=== PATIENT | male | born 1930 | race Caucasian/White ===

== ENCOUNTER 2017-12-15 07:37 | Emergency (ER) | payer MEDICARE, OTHER ==
[~2017-12-15] VITALS: Ht 177.8 cm; Wt 72.5 kg
[~2017-12-15 07:37] MED LIST: ASPI81 PO; LAMI200T PO; SERO400T3 OR; SIMV20TA PO; TRAZ50TA4 PO
[2017-12-15 07:51] VITALS: BP 141/79; PULSE 80; RESP 16; TEMP 98.6; O2SAT 96
[2017-12-15 08:17] LABS: AUTOMATED NEUTROPHIL # 2.1 TH/MM3 (1.8-7.7); BASOPHIL % 0.5 % (0.0-2.0); EOSINOPHIL # 0.1 TH/MM3 (0-0.4); EOSINOPHIL % 3.2 % (0.0-4.0); HEMATOCRIT 37.7 % (39.0-51.0); HEMOGLOBIN 12.4 GM/DL (13.0-17.0); LYMPH % 24.9 % (9.0-44.0); MEAN CELL VOLUME 90.4 FL (80.0-100.0); MEAN CORPUSCULAR HEMOGLOBIN 29.8 PG (27.0-34.0); MEAN CORPUSCULAR HGB CONC 32.9 % (32.0-36.0); MONO % 19.1 % (0.0-8.0); MONOCYTE # 0.8 TH/MM3 (0-0.9); NEUT % 52.3 % (16.0-70.0); PLATELET COUNT 268 TH/MM3 (150-450); RED BLOOD COUNT 4.16 MIL/MM3 (4.50-5.90); RED CELL DISTRIBUTION WIDTH 12.6 % (11.6-17.2)
[2017-12-15 08:28] LABS: CHLORIDE 106 MEQ/L (98-107); SODIUM (NA) 141 MEQ/L (136-145)
[2017-12-15 08:31] LABS: ALBUMIN 3.4 GM/DL (3.4-5.0); BICARBONATE 31.5 MEQ/L (21.0-32.0); CALCIUM 8.6 MG/DL (8.5-10.1)
[2017-12-15 08:32] LABS: BLOOD UREA NITROGEN 12 MG/DL (7-18); GLUCOSE,RANDOM 89 MG/DL (74-106)
[2017-12-15 08:35] LABS: ALT (GPT) 37 U/L (12-78); AST (GOT) 27 U/L (15-37); CREATININE 0.76 MG/DL (0.60-1.30); GLOMERULAR FILTRATION RATE 97 ML/MIN (>89)
[2017-12-15 08:36] LABS: TOTAL BILIRUBIN ADULT 0.4 MG/DL (0.2-1.0); TOTAL PROTEIN 7.1 GM/DL (6.4-8.2)
[2017-12-15 08:37] LABS: ALKALINE PHOSPHATASE 94 U/L (45-117)
--- NOTE | 2017-12-15 08:40 | RADRPT ---
EXAM DATE/TIME: 12/15/2017 08:11 [facility] COMPARISON: No previous studies available for comparison. INDICATIONS : Episode of aggressive behavior and altered mental status. RADIATION DOSE: 57.55 CTDIvol (mGy) MEDICAL HISTORY : Unknown SURGICAL HISTORY : Unknown ENCOUNTER: Initial ACUITY: 1 day PAIN SCALE: 0/10 LOCATION: cranial TECHNIQUE: Multiple contiguous axial images were obtained of the head. Using automated exposure control and adj ustment of the mA and/or kV according to patient size, radiation dose was kept as low as reasonably a chievable to obtain optimal diagnostic quality images. DICOM format image data is available electro nically for review and comparison. FINDINGS: CEREBRUM: The ventricles are normal for age. Mild periventricular and subcortical white matter small vessel is chemic changes are noted bilaterally. No evidence of midline shift, mass lesion, hemorrhage or acute infarction. No extra-axial fluid collections are seen. POSTERIOR FOSSA: The cerebellum and brainstem are intact. The 4th ventricle is midline. The cerebellopontine angle i s unremarkable. EXTRACRANIAL: The visualized portion of the orbits is intact. Mild mucosal thickening is noted within the left maxi llary sinus. SKULL: The calvaria is intact. No evidence of skull fracture. CONCLUSION: 1. Mild periventricular and subcortical white matter small vessel ischemic changes bilaterally. 2. No acute infarct, acute hemorrhage, mass effect or extra axial fluid collections. 3. Mild mucosal thickening involving left maxillary sinus. Royer Abreu MD on December 15, 2017 at 8:37 Board Certified Radiologist. This report was verified electronically.
[2017-12-15] MEDS ORDERED: CARV6.252 PO (08:52)
[2017-12-15] MEDS ORDERED: FURO40TA PO (08:52)
[2017-12-15] MEDS ORDERED: POTA-163 PO (08:52)
[2017-12-15] MEDS ORDERED: LOSA50TA PO (08:52)
[2017-12-15] MEDS ORDERED: MECL12.574 PO (08:52)
[2017-12-15] MEDS ORDERED: RISP0.5T2 PO (08:52)
[2017-12-15] MEDS ORDERED: CITA20TA4 PO (08:52)
[2017-12-15] MEDS ORDERED: DONE10TA7 PO (08:52)
[2017-12-15] MEDS ORDERED: LORA-567 PO (08:52)
[2017-12-15] MEDS ORDERED: SIMV40TA PO (08:52)
[2017-12-15] MEDS ORDERED: BUSP15TA PO (08:52)
[2017-12-15] MEDS ORDERED: ASPI-516 CHEW ×2 (08:52→10:58)
[2017-12-15] MEDS ORDERED: CALC1TAB87 PO (08:52)
[2017-12-15] MEDS ORDERED: CLON0.1T PO (08:52)
[2017-12-15] MEDS ORDERED: OMEP40CA2 PO (08:52)
[2017-12-15] MEDS ORDERED: LOPE2CAP PO (08:52)
[2017-12-15] MEDS ORDERED: MELA5 PO (08:52)
--- NOTE | 2017-12-15 10:27 | PD ---
HPI Chief Complaint: Medical Clearance Time Seen by Provider: 07:46 Travel History International Travel<30 days: No Contact w/Intl Traveler<30days: No Traveled to known affect area: No History of Present Illness HPI This 87-year-old male is brought from assisted living facility. He apparently lives there with his who has Lewy body dementia. Patient himself has dementia. He has a history of bipolar disorder that predates his dementia. He is currently on citalopram. Risperidone and buspirone. He went to his personal doctor last week and Depakote was added. There has been no improvement with the Depakote. The patient apparently does not sleep at night. He has gotten his up in the middle of the night and [facility]. Patient himself is not able to give much history. He is quite confused. He knows that he lives with his but he does not know where they will live PFSH Past Medical History Hx Anticoagulant Therapy: No (UNKNOWN) Arthritis: Yes Bipolar Disorder: Yes Anxiety: Yes Depression: Yes Cardiovascular Problems: No (UNKNOWN) Chemotherapy: No (UNKNOWN) Cerebrovascular Accident: No (UNKNOWN) Diabetes: No (UNKNOWN) Diminished Hearing: Yes (extremely [place]; wears hearing aids) Hiatal Hernia: Yes (197o's) Hypertension: Yes Musculoskeletal: Yes Psychiatric: Yes (pts is bi-polar) Respiratory: No (UNKNOWN) Pancreatitis: Yes Seizures: Yes ( CHILD BUT NONE SINCE 8 YEARS OLD) Triglycerides - High: Yes Ulcer: Yes Tetanus Vaccination: < 5 Years PNEUMOCCOCAL Vaccine (Year): 2010 Past Surgical History Abdominal Surgery: Yes (paula inquinal hernia repair) AICD: No Appendectomy: No Body Medical Devices: N/A Cardiac Surgery: No Cholecystectomy: No Ear Surgery: No Endocrine Surgery: No Eye Surgery: No Genitourinary Surgery: Yes (Hernia Repairs ) Gynecologic Surgery: No Hysterectomy: No (UNKNOWN) Joint Replacement: No Neurologic Surgery: No Oral Surgery: No Thoracic Surgery: Yes (right lung biopsy) Other Surgery: Yes (cyst in lung, middle chamber removed) Social History Alcohol Use: Yes (social use, nothing recent) Tobacco Use: No Substance Use: No Allergies-Medications (Allergen,Severity, Reaction): Coded Allergies: penicillin G (Unverified Allergy, Severe, Hives, 12/15/17) acetaminophen (Verified Allergy, Unknown, 12/15/17) alprazolam (Verified Allergy, Unknown, 12/15/17) oxycodone (Verified Allergy, Unknown, 12/15/17) Reported Meds & Prescriptions Reported Meds & Active Scripts Active Reported Buspirone (Buspirone HCl) 15 Mg Tab 15 Mg PO TID Risperidone 0.5 Mg Tab 0.5 Mg PO BID Losartan (Losartan Potassium) 50 Mg Tab 50 Mg PO BID Carvedilol 6.25 Mg Tab 6.25 Mg PO BID Potassium Chloride ER (Potassium Chloride) 20 Meq Tab 20 Meq PO DAILY Omeprazole 40 Mg Cap 40 Mg PO DAILY Loratadine Odt (Loratadine) 10 Mg Tab 10 Mg PO DAILY Furosemide 40 Mg Tab 40 Mg PO DAILY Citalopram (Citalopram Hydrobromide) 20 Mg Tab 20 Mg PO DAILY Calcium 600 with Vitamin D (Calcium Carbonate-Cholecalciferol) 600-400 mg-Unit Tab 1 Tab PO DAILY Aspirin 81 Mg Chew 81 Mg CHEW DAILY Loperamide (Loperamide HCl) 2 Mg Cap 2 Mg PO DIRECTED PRN One capsule after each loose stool. Not to exceed 8 capsules per day. Clonidine (Clonidine HCl) 0.1 Mg Tab 0.1 Mg PO DAILY PRN Simvastatin 40 Mg Tab 40 Mg PO HS Melatonin 5 Mg Tab 5 Mg PO HS Donepezil 10 Mg Tab 10 Mg PO HS Meclizine (Meclizine HCl) 12.5 Mg Tab 12.5 Mg PO TID PRN Review of Systems ROS Limitations: Altered Mental Status Physical Exam Narrative GENERAL: I well-developed male SKIN: Focused skin assessment warm/dry. HEAD: Atraumatic. Normocephalic. EYES: Pupils equal and round. No scleral icterus. No injection or drainage. ENT: No nasal bleeding or discharge. Mucous membranes pink and moist. NECK: Trachea midline. No JVD. CARDIOVASCULAR: Regular rate and rhythm. No murmur appreciated. RESPIRATORY: No accessory muscle use. Clear to auscultation. Breath sounds equal bilaterally. GASTROINTESTINAL: Abdomen soft, non-tender, nondistended. Hepatic and splenic margins not palpable. MUSCULOSKELETAL: No obvious deformities. No clubbing. No cyanosis. No edema. NEUROLOGICAL: Awake and alert. No obvious cranial nerve deficits. Motor grossly within normal limits. Patient is extremely confused and hard of hearing PSYCHIATRIC: At this time the patient is not combative Data Data Last Documented VS Vital Signs Date Time Temp Pulse Resp B/P (MAP) Pulse Ox O2 Delivery O2 Flow Rate FiO2 12/15/17 07:51 98.6 80 16 141/79 (99) 96 Orders Orders Complete Blood Count With Diff (12/15/17 07:48) Comprehensive Metabolic Panel (12/15/17 07:48) Urinalysis - C+S If Indicated (12/15/17 07:48) Ct Brain W/O Iv Contrast(Rout) (12/15/17 07:48) Valproic Acid (Depakene) (12/15/17 09:20) Labs Laboratory Tests Test 12/15/17 08:10 White Blood Count 4.0 TH/MM3 Red Blood Count 4.16 MIL/MM3 Hemoglobin 12.4 GM/DL Hematocrit 37.7 % Mean Corpuscular Volume 90.4 FL Mean Corpuscular Hemoglobin 29.8 PG Mean Corpuscular Hemoglobin Concent 32.9 % Red Cell Distribution Width 12.6 % Platelet Count 268 TH/MM3 Mean Platelet Volume 8.0 FL Neutrophils (%) (Auto) 52.3 % Lymphocytes (%) (Auto) 24.9 % Monocytes (%) (Auto) 19.1 % Eosinophils (%) (Auto) 3.2 % Basophils (%) (Auto) 0.5 % Neutrophils # (Auto) 2.1 TH/MM3 Lymphocytes # (Auto) 1.0 TH/MM3 Monocytes # (Auto) 0.8 TH/MM3 Eosinophils # (Auto) 0.1 TH/MM3 Basophils # (Auto) 0.0 TH/MM3 CBC Comment DIFF FINAL Differential Comment Blood Urea Nitrogen 12 MG/DL Creatinine 0.76 MG/DL Random Glucose 89 MG/DL Total Protein 7.1 GM/DL Albumin 3.4 GM/DL Calcium Level 8.6 MG/DL Alkaline Phosphatase 94 U/L Aspartate Amino Transf (AST/SGOT) 27 U/L Alanine Aminotransferase (ALT/SGPT) 37 U/L Total Bilirubin 0.4 MG/DL Sodium Level 141 MEQ/L Potassium Level 3.7 MEQ/L Chloride Level 106 MEQ/L Carbon Dioxide Level 31.5 MEQ/L Anion Gap 4 MEQ/L Estimat Glomerular Filtration Rate 97 ML/MIN MDM Medical Decision Making Medical Screen Exam Complete: Yes Emergency Medical Condition: Yes Medical Record Reviewed: Yes Differential Diagnosis Differential includes electrolyte imbalance, progressive dementia, bipolar disorder Narrative Course I have spoken at some length with the patient's daughter who says that the patient has been causing a lot of [facility] the [facility] and his behavior has been increasingly disruptive. He has been a patient at [facility] before and she feels he needs stabilization. I have contacted the ER and they will evaluate the patient Diagnosis Primary Impression: Bipolar disorder Additional Impression: Dementia Broderick Parker MD Dec 15, 2017 10:27
[2017-12-15] MEDS ORDERED: LAMO200T PO (10:58)
[2017-12-15] MEDS ORDERED: CLON0.5T PO (10:58)
[2017-12-15] MEDS ORDERED: DIVA250T PO (10:58)
[2017-12-15] MEDS ORDERED: QUET1TAB9 PO (10:58)
[2017-12-15] MEDS ORDERED: TRAZ50TA12 PO (10:58)
[2017-12-15] MEDS ORDERED: QUET400T PO (10:58)
[2017-12-15] MEDS ORDERED: SIMV20TA PO (10:58)
[2017-12-15 11:03] VITALS: BP 138/76
[2017-12-15 11:25] VITALS: BP 138/62; PULSE 80; PULSE 83; RESP 14; O2SAT 98
[2017-12-15 17:38] LABS: BILIRUBIN, URINE NEG (NEG); BLOOD, URINE NEG (NEG); GLUCOSE,URINE NEG (NEG); KETONE, URINE 10 mg/dL (NEG); MUCUS URINE FEW /lpf (OCC); NITRITE,URINE NEG (NEG); PH, URINE 7.5 (5.0-8.5); URINE COLOR YELLOW (YELLW/STRAW); URINE LEUKOCYTE ESTERASE NEG (NEG)
--- NOTE | 2017-12-15 18:25 | PD ---
History of Present Illness Chief Complaint: Medical Clearance Travel History International Travel<30 Days: No Contact w/Intl Traveler<30days: No Known affected area: No Legal Status Legal Status: Voluntary History of Present Illness: Patient is 87 y/o PFSH Past Medical History Hx Anticoagulant Therapy: No (UNKNOWN) Arthritis: Yes Bipolar Disorder: Yes Anxiety: Yes Depression: Yes Cardiovascular Problems: No (UNKNOWN) Chemotherapy: No (UNKNOWN) Cerebrovascular Accident: No (UNKNOWN) Coronary Artery Disease: Yes Diabetes: No (UNKNOWN) Patient Takes Glucophage: No Diminished Hearing: Yes (extremely [place]; wears hearing aids) Hiatal Hernia: Yes (197o's) Hypertension: Yes Musculoskeletal: Yes Psychiatric: Yes (pts is bi-polar) Respiratory: No (UNKNOWN) Pancreatitis: Yes Seizures: Yes ( CHILD BUT NONE SINCE 8 YEARS OLD) Triglycerides - High: Yes Ulcer: Yes Tetanus Vaccination: < 5 Years PNEUMOCCOCAL Vaccine (Year): 2010 Past Surgical History Abdominal Surgery: Yes (paula inquinal hernia repair) AICD: No Appendectomy: No Body Medical Devices: N/A Cardiac Surgery: No Cholecystectomy: No Ear Surgery: No Endocrine Surgery: No Eye Surgery: No Genitourinary Surgery: Yes (Hernia Repairs ) Gynecologic Surgery: No Hysterectomy: No (UNKNOWN) Joint Replacement: No Neurologic Surgery: No Oral Surgery: No Thoracic Surgery: Yes (right lung biopsy) Other Surgery: Yes (cyst in lung, middle chamber removed) Psychiatric History Psychiatric History Hx Psychiatric Treatment: Unable to recall History of Inpatient Treatment: Yes Social History Hx Alcohol Use: Yes (social use, nothing recent) Hx Tobacco Use: No Hx Substance Use: No Hx of Substance Use Treatment: No Allergies-Medications (Allergen,Severity, Reaction): Coded Allergies: oxycodone (Verified Allergy, Unknown, 12/15/17) Reported Meds & Prescriptions Reported Meds & Active Scripts Active Reported Divalproex DR (Divalproex Sodium) 250 Mg Tabdr 250 Mg PO BID Clonazepam 0.5 Mg Tab 0.5 Mg PO TID Trazodone (Trazodone HCl) 50 Mg Tab 50 Mg PO HS Quetiapine (Quetiapine Fumarate) 400 Mg Tab 600 Mg PO HS Simvastatin 20 Mg Tab 20 Mg PO DAILY Quetiapine (Quetiapine Fumarate) 200 Mg Tab 200 Mg PO DAILY Lamotrigine 200 Mg Tab 200 Mg PO DAILY Aspirin 81 Mg Chew 81 Mg CHEW DAILY MDM Medical Decision Making Medical Record Reviewed: Yes Orders Orders Complete Blood Count With Diff (12/15/17 07:48) Comprehensive Metabolic Panel (12/15/17 07:48) Urinalysis - C+S If Indicated (12/15/17 07:48) Ct Brain W/O Iv Contrast(Rout) (12/15/17 07:48) Valproic Acid (Depakene) (12/15/17 09:20) Diet Heart Healthy (12/15/17 Lunch) Psych Screen (12/15/17 16:27) Results Vital Signs Date Time Temp Pulse Resp B/P (MAP) Pulse Ox O2 Delivery O2 Flow Rate FiO2 12/15/17 11:25 83 14 138/62 (87) 98 Room Air 12/15/17 11:03 87 16 138/76 (96) 97 12/15/17 07:51 98.6 80 16 141/79 (99) 96 Laboratory Tests Test 12/15/17 08:10 12/15/17 17:07 White Blood Count 4.0 Red Blood Count 4.16 Hemoglobin 12.4 Hematocrit 37.7 Mean Corpuscular Volume 90.4 Mean Corpuscular Hemoglobin 29.8 Mean Corpuscular Hemoglobin Concent 32.9 Red Cell Distribution Width 12.6 Platelet Count 268 Mean Platelet Volume 8.0 Neutrophils (%) (Auto) 52.3 Lymphocytes (%) (Auto) 24.9 Monocytes (%) (Auto) 19.1 Eosinophils (%) (Auto) 3.2 Basophils (%) (Auto) 0.5 Neutrophils # (Auto) 2.1 Lymphocytes # (Auto) 1.0 Monocytes # (Auto) 0.8 Eosinophils # (Auto) 0.1 Basophils # (Auto) 0.0 CBC Comment DIFF FINAL Differential Comment Blood Urea Nitrogen 12 Creatinine 0.76 Random Glucose 89 Total Protein 7.1 Albumin 3.4 Calcium Level 8.6 Alkaline Phosphatase 94 Aspartate Amino Transf (AST/SGOT) 27 Alanine Aminotransferase (ALT/SGPT) 37 Total Bilirubin 0.4 Sodium Level 141 Potassium Level 3.7 Chloride Level 106 Carbon Dioxide Level 31.5 Anion Gap 4 Estimat Glomerular Filtration Rate 97 Valproic Acid (Depakene) Level 30 Urine Color YELLOW Urine Turbidity CLEAR Urine pH 7.5 Urine Specific [place] 1.012 Urine Protein NEG Urine Glucose (UA) NEG Urine Ketones 10 Urine Occult Blood NEG Urine Nitrite NEG Urine Bilirubin NEG Urine Urobilinogen LESS THAN 2.0 Urine Leukocyte Esterase NEG Urine RBC LESS THAN 1 Urine WBC LESS THAN 1 Urine Mucus FEW Microscopic Urinalysis Comment CULT NOT INDICATED Diagnosis Primary Impression: Bipolar disorder Additional Impression: Dementia Problem Qualifiers Cindy Olvera Dec 15, 2017 18:25
--- NOTE | 2017-12-15 18:56 | PD ---
History of Present Illness Chief Complaint: Medical Clearance Travel History International Travel<30 Days: No Contact w/Intl Traveler<30days: No Known affected area: No Legal Status Legal Status: Voluntary History of Present Illness: Patient is an 87 y/o male that was brought to the emergency department by his daughter Olga Pitts for evaluation due to changes in his behavior. Patient has a history of Dementia, Alzhemizer type, DM , CVD, cholesterolemia and anxiety. Daughter reports that patient was recently moved from [facility] to [facility] in order to keep him and his in the same facility. Per facility patient has been getting up in the middle the night and going to his 's room and trying to get her out of the bed. Staff at [facility] indicate that he has been experiencing insomnia. Patient is followed by Dr. Colmenares PCP at [facility] he has been placed on Lamictal 200 mg every morning, Seroquel 600 mg qhs and and recently added Depakote 250 mg qhs. On examination patient was able to recall the year , his date of , his 's name his 2 daughters names (Olga and Britt) and that he has 2 young grandchildren. When asked his age he said he was 18 years old and that the month was July. Patient repeated each sentence prior to answering the question. He has normal rate tone and volume. Motor coordination intact. Poor concentration. Delay in responding to questions. Mood mood is good and affect euthymic. Patient acknowledges that he has had difficulty sleeping. Patient acknowledges that moving to the new location has caused some confusion. 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 Collaboration with Olga Pitts , daughter states that his father appears to be declining. 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 Daughter feels that her father would do better if he was moved to the memory care unit at [facility] he is currently in general population. Olga also acknowledges the addition of the Depakote was just added and that this may help him to sleep. Olga states that her mother is failing and she is concerned about both of them and thought that the hospital could help her to understand the plan of care regarding his mental illness and behavior. Based on the patient's current situation living with his in the same facility, I recommended that an admission would separate them and could add to his distress. The daughter agreed with this assessment. Dr. Colmenares currently is addressing his diagnosis of Bipolar with Lamictal, Seroquel and Depakote. I reviewed the medications with Olga so that she had information about the mechanism of action and rationale for the medication. Recommendations : (1) return patient to [facility] ; (2) consider moving both Paras and Melva to the Memory Care Unit at [facility] versus general population; (3) give the Depakote time to work , utilize Clonazepam ordered by Dr. Colmenares prn if he becomes agitated. (4) consider increasing Depakote if he continues to be restless at night. The daughter Olga was in agreement with the plan. She asked that we transport her father back to [facility] for his safety. We will coordinate his transportation and share the recommendations with the nursing staff at the facility. Patient will be discharged and returned to [facility]. Dx: Alzheimer's, Dementia with behavioral disturbances; Insomnia, Bipolar Disorder PFSH Past Medical History Hx Anticoagulant Therapy: No (UNKNOWN) Arthritis: Yes Bipolar Disorder: Yes Anxiety: Yes Depression: Yes Cardiovascular Problems: No (UNKNOWN) Chemotherapy: No (UNKNOWN) Cerebrovascular Accident: No (UNKNOWN) Coronary Artery Disease: Yes Diabetes: No (UNKNOWN) Patient Takes Glucophage: No Diminished Hearing: Yes (extremely [place]; wears hearing aids) Hiatal Hernia: Yes (197o's) Hypertension: Yes Musculoskeletal: Yes Psychiatric: Yes (pts is bi-polar) Respiratory: No (UNKNOWN) Pancreatitis: Yes Seizures: Yes ( CHILD BUT NONE SINCE 8 YEARS OLD) Triglycerides - High: Yes Ulcer: Yes Tetanus Vaccination: < 5 Years PNEUMOCCOCAL Vaccine (Year): 2010 Past Surgical History Abdominal Surgery: Yes (paula inquinal hernia repair) AICD: No Appendectomy: No Body Medical Devices: N/A Cardiac Surgery: No Cholecystectomy: No Ear Surgery: No Endocrine Surgery: No Eye Surgery: No Genitourinary Surgery: Yes (Hernia Repairs ) Gynecologic Surgery: No Hysterectomy: No (UNKNOWN) Joint Replacement: No Neurologic Surgery: No Oral Surgery: No Thoracic Surgery: Yes (right lung biopsy) Other Surgery: Yes (cyst in lung, middle chamber removed) Psychiatric History Psychiatric History Hx Psychiatric Treatment: Unable to recall History of Inpatient Treatment: Yes Social History Hx Alcohol Use: Yes (social use, nothing recent) Hx Tobacco Use: No Hx Substance Use: No Hx of Substance Use Treatment: No Family Psychiatric History Long history of bipolar. Was treated at [facility] in past for bipolar. Per family has been under care most of his life for bipolar. Allergies-Medications (Allergen,Severity, Reaction): Coded Allergies: oxycodone (Verified Allergy, Unknown, 12/15/17) Reported Meds & Prescriptions Reported Meds & Active Scripts Active Reported Divalproex DR (Divalproex Sodium) 250 Mg Tabdr 250 Mg PO BID Clonazepam 0.5 Mg Tab 0.5 Mg PO TID Trazodone (Trazodone HCl) 50 Mg Tab 50 Mg PO HS Quetiapine (Quetiapine Fumarate) 400 Mg Tab 600 Mg PO HS Simvastatin 20 Mg Tab 20 Mg PO DAILY Quetiapine (Quetiapine Fumarate) 200 Mg Tab 200 Mg PO DAILY Lamotrigine 200 Mg Tab 200 Mg PO DAILY Aspirin 81 Mg Chew 81 Mg CHEW DAILY Mental Status Examination Appearance: Appropriate, Well dressed/well groomed Consciousness: Alert Orientation: Person (knew his birthday, but thought he was 18 years old) Motor Activity: Normal gait Speech: Hesitant, Slow Language: Perseveration Fund of Knowledge: Poor Attention and Concentration: Easily Distracted Memory: Impaired Mood: Good Affect: Euthymic Thought Process & Associations: Loose associations, Disorganized Thought Content: Thought blocking Hallucination Type: None Delusion Type: None Suicidal Ideation: No Suicidal Plan: No Suicidal Intention: No Homicidal Ideation: No Homicidal Plan: No Homicidal Intention: No Insight: Adequate Judgment: Adequate MDM Medical Decision Making Medical Record Reviewed: Yes Assessment/Plan Patient is currently stable. Admitting him would cause additional distress due to being from his . Patient is currently on Seroquel, Lamictal and Depakote has recently been added. Recommendation :(1) return patient to [facility] ; (2) consider moving both Paras and Melva to the Memory Care Unit at [facility] versus general population; (3) give the Depakote time to work , utilize Clonazepam ordered by Dr. Darrian smith if he becomes agitated. ( 4) consider increasing Depakote if he continues to be restless at night. Will work with [facility] to arrange for transportation back the facility. I spoke with his daughter , Olga and she is in agreement with this plan. Orders Orders Complete Blood Count With Diff (12/15/17 07:48) Comprehensive Metabolic Panel (12/15/17 07:48) Urinalysis - C+S If Indicated (12/15/17 07:48) Ct Brain W/O Iv Contrast(Rout) (12/15/17 07:48) Valproic Acid (Depakene) (12/15/17 09:20) Diet Heart Healthy (12/15/17 Lunch) Psych Screen (12/15/17 16:27) Results Vital Signs Date Time Temp Pulse Resp B/P (MAP) Pulse Ox O2 Delivery O2 Flow Rate FiO2 12/15/17 11:25 83 14 138/62 (87) 98 Room Air 12/15/17 11:03 87 16 138/76 (96) 97 12/15/17 07:51 98.6 80 16 141/79 (99) 96 Laboratory Tests Test 12/15/17 08:10 12/15/17 17:07 White Blood Count 4.0 Red Blood Count 4.16 Hemoglobin 12.4 Hematocrit 37.7 Mean Corpuscular Volume 90.4 Mean Corpuscular Hemoglobin 29.8 Mean Corpuscular Hemoglobin Concent 32.9 Red Cell Distribution Width 12.6 Platelet Count 268 Mean Platelet Volume 8.0 Neutrophils (%) (Auto) 52.3 Lymphocytes (%) (Auto) 24.9 Monocytes (%) (Auto) 19.1 Eosinophils (%) (Auto) 3.2 Basophils (%) (Auto) 0.5 Neutrophils # (Auto) 2.1 Lymphocytes # (Auto) 1.0 Monocytes # (Auto) 0.8 Eosinophils # (Auto) 0.1 Basophils # (Auto) 0.0 CBC Comment DIFF FINAL Differential Comment Blood Urea Nitrogen 12 Creatinine 0.76 Random Glucose 89 Total Protein 7.1 Albumin 3.4 Calcium Level 8.6 Alkaline Phosphatase 94 Aspartate Amino Transf (AST/SGOT) 27 Alanine Aminotransferase (ALT/SGPT) 37 Total Bilirubin 0.4 Sodium Level 141 Potassium Level 3.7 Chloride Level 106 Carbon Dioxide Level 31.5 Anion Gap 4 Estimat Glomerular Filtration Rate 97 Valproic Acid (Depakene) Level 30 Urine Color YELLOW Urine Turbidity CLEAR Urine pH 7.5 Urine Specific [place] 1.012 Urine Protein NEG Urine Glucose (UA) NEG Urine Ketones 10 Urine Occult Blood NEG Urine Nitrite NEG Urine Bilirubin NEG Urine Urobilinogen LESS THAN 2.0 Urine Leukocyte Esterase NEG Urine RBC LESS THAN 1 Urine WBC LESS THAN 1 Urine Mucus FEW Microscopic Urinalysis Comment CULT NOT INDICATED Diagnosis Primary Impression: Bipolar disorder Additional Impressions: Alzheimer's dementia with behavioral disturbance Insomnia Psychiatrically Cleared: Yes Disposition: 01 DISCHARGE HOME (to [facility] ) Condition: Stable Problem Qualifiers Cindy Olvera Dec 15, 2017 18:56
== END 2017-12-15 20:15 | disposition home or self-care (01) ==
LOC: PHED 07:37 → NEPJ 20:15
DX: F31.9 Bipolar disorder, unspecified (principal); G30.9 Alzheimer's disease, unspecified; F02.81 Dementia in other diseases classified elsewhere, unspecified severity, with behavioral disturbance; G47.00 Insomnia, unspecified; I10 Essential (primary) hypertension; I25.10 Atherosclerotic heart disease of native coronary artery without angina pectoris; E78.2 Mixed hyperlipidemia; E11.9 Type 2 diabetes mellitus without complications; Z88.5 Allergy status to narcotic agent; Z88.0 Allergy status to penicillin; Z79.899 Other long term (current) drug therapy
CPT/HCPCS: 70450; 80053; 80164; 81001; 85025

== ENCOUNTER 2017-12-20 00:22 | Inpatient (IN) | payer MEDICARE ==
[~2017-12-20 00:22] MED LIST changes: +ASPI-516 CHEW; -ASPI81 PO; +CLON0.5T PO; +DIVA250T PO; -LAMI200T PO; +LAMO200T PO; +QUET1TAB9 PO; +QUET400T PO; -SERO400T3 OR; +TRAZ50TA12 PO; -TRAZ50TA4 PO
[2017-12-20 00:27] VITALS: BP 157/77; PULSE 92; RESP 16; TEMP 99.1; O2SAT 98
[2017-12-20 01:00] LABS: BASOPHIL % 0.5 % (0.0-2.0); EOSINOPHIL # 0.1 TH/MM3 (0-0.4); HEMATOCRIT 39.3 % (39.0-51.0); HEMOGLOBIN 13.3 GM/DL (13.0-17.0); LYMPH % 33.1 % (9.0-44.0); LYMPHOCYTE # 1.4 TH/MM3 (1.0-4.8); MEAN CELL VOLUME 89.7 FL (80.0-100.0); MEAN CORPUSCULAR HEMOGLOBIN 30.4 PG (27.0-34.0); MEAN CORPUSCULAR HGB CONC 33.8 % (32.0-36.0); MEAN PLATELET VOLUME 8.4 FL (7.0-11.0); MONO % 17.7 % (0.0-8.0); MONOCYTE # 0.8 TH/MM3 (0-0.9); NEUT % 46.7 % (16.0-70.0); PLATELET COUNT 256 TH/MM3 (150-450); RED BLOOD COUNT 4.38 MIL/MM3 (4.50-5.90); RED CELL DISTRIBUTION WIDTH 13.3 % (11.6-17.2); WHITE BLOOD COUNT 4.3 TH/MM3 (4.0-11.0)
[2017-12-20 01:02] LABS: BILIRUBIN, URINE NEG (NEG); BLOOD, URINE NEG (NEG); GLUCOSE,URINE NEG (NEG); HYALINE CAST, URINE 2 /lpf (RARE); KETONE, URINE 10 mg/dL (NEG); MUCUS URINE FEW /lpf (OCC); NITRITE,URINE NEG (NEG); SQUAMOUS EPITHELIAL CELL URINE <1 /hpf (0-5); URINE COLOR LIGHT-YELLOW (YELLW/STRAW); URINE LEUKOCYTE ESTERASE NEG (NEG)
--- NOTE | 2017-12-20 01:02 | RADRPT ---
EXAM DATE/TIME: 12/20/2017 00:45 [facility] COMPARISON: CHEST SINGLE AP, February 16, 2015, 21:04. INDICATIONS : Shortness of breath. MEDICAL HISTORY : None. SURGICAL HISTORY : None. ENCOUNTER: Initial ACUITY: 1 day PAIN SCORE: 0/10 LOCATION: Bilateral chest FINDINGS: A single view of the chest demonstrates the lungs to be symmetrically aerated without evidence of mas s, infiltrate or effusion. The cardiomediastinal contours are unremarkable. Stable curvature of the lower thoracic spine convex towards the right. CONCLUSION: No acute findings. The lungs are clear. Pacheco Lo MD on December 20, 2017 at 0:59 Board Certified Radiologist. This report was verified electronically.
--- NOTE | 2017-12-20 01:14 | RADRPT ---
EXAM DATE/TIME: 12/20/2017 00:58 [place] COMPARISON: CT BRAIN W/O CONTRAST, December 15, 2017, 8:11. INDICATIONS : Altered mental status. RADIATION DOSE: 66.34 CTDIvol (mGy) MEDICAL HISTORY : Non-responsive. SURGICAL HISTORY : Non-responsive. ENCOUNTER: Initial ACUITY: 1 day PAIN SCALE: 0/10 LOCATION: cranial TECHNIQUE: Multiple contiguous axial images were obtained of the head. Using automated exposure control and adj ustment of the mA and/or kV according to patient size, radiation dose was kept as low as reasonably a chievable to obtain optimal diagnostic quality images. DICOM format image data is available electro nically for review and comparison. FINDINGS: The patient's head is canted in the gantry creating asymmetries. CEREBRUM: The ventricles and sulci are prominent, characteristic of moderate central and cortical atrophy. No evidence of midline shift, mass lesion, hemorrhage or acute infarction. No extra-axial fluid collect ions are seen. POSTERIOR FOSSA: The cerebellum and brainstem are intact. The 4th ventricle is midline. The cerebellopontine angle i s unremarkable. EXTRACRANIAL: The visualized portion of the orbits is intact. Moderate mucosal thickening in the left maxillary si nus. SKULL: The calvaria is intact. No evidence of skull fracture. CONCLUSION: 1. Moderate atrophy. 2. No acute findings in the brain. 3. Left maxillary sinus disease without air-fluid level. Jennifer Lo MD on December 20, 2017 at 1:10 Board Certified Radiologist. This report was verified electronically.
[2017-12-20 01:17] LABS: ALBUMIN 3.4 GM/DL (3.4-5.0); AST (GOT) 30 U/L (15-37); BICARBONATE 29.1 MEQ/L (21.0-32.0); BLOOD UREA NITROGEN 14 MG/DL (7-18); CALCIUM 8.6 MG/DL (8.5-10.1); CHLORIDE 105 MEQ/L (98-107); GLOMERULAR FILTRATION RATE 80 ML/MIN (>89); GLUCOSE,RANDOM 104 MG/DL (74-106); SODIUM (NA) 143 MEQ/L (136-145)
[2017-12-20 01:25] LABS: ACETAMINOPHEN LESS THAN 2.0 MCG/ML (10.0-30.0); ALKALINE PHOSPHATASE 87 U/L (45-117); ALT (GPT) 40 U/L (12-78); TOTAL BILIRUBIN ADULT 0.3 MG/DL (0.2-1.0); TOTAL PROTEIN 6.8 GM/DL (6.4-8.2); TROPONIN I LESS THAN 0.02 NG/ML (0.02-0.05)
[2017-12-20 05:30] VITALS: BP 146/71; PULSE 80; RESP 16; O2SAT 100
[2017-12-20] MEDS ORDERED: diphenhydrAMINE HCL 50 MG/ML VIAL IV PUSH ONE (05:30)
[2017-12-20] MEDS ORDERED: HALOPERIDOL LACTATE 5 MG/ML AMP IV PUSH ONE ×2 (05:30→09:15)
--- NOTE | 2017-12-20 06:18 | PD ---
HPI Chief Complaint: Altered Mental Status Time Seen by Provider: 00:25 Travel History International Travel<30 days: No Contact w/Intl Traveler<30days: No Traveled to known affect area: No History of Present Illness HPI Patient is an 87-year-old male who lives in a care home where recently his became more altered and demented and had to be from him he is becoming worse declining over the last few weeks and he is brought in by his family member saying that he is deteriorating and is worried about his psychological state he was in our ER just a few days ago evaluated and discharged back to the care home family member feels needs to be psychologically admitted for further evaluation patient is a poor historian severely demented and unable to provide ROS or HPI PFSH Past Medical History Hx Anticoagulant Therapy: No (UNKNOWN) Arthritis: Yes Bipolar Disorder: Yes Anxiety: Yes Depression: Yes Cardiovascular Problems: No (UNKNOWN) Chemotherapy: No (UNKNOWN) Cerebrovascular Accident: No (UNKNOWN) Coronary Artery Disease: Yes Diabetes: No (UNKNOWN) Diminished Hearing: Yes (extremely [place]; wears hearing aids) Endocrine: No GERD: No Glaucoma: No Headaches: No Hepatitis: No Hiatal Hernia: Yes () Hypertension: Yes Musculoskeletal: Yes Psychiatric: Yes (pts is bi-polar) Respiratory: No (UNKNOWN) Pancreatitis: Yes Seizures: Yes ( CHILD BUT NONE SINCE 8 YEARS OLD) Triglycerides - High: Yes Ulcer: Yes PNEUMOCCOCAL Vaccine (Year): 2010 Past Surgical History Abdominal Surgery: Yes (paula inquinal hernia repair) AICD: No Appendectomy: No Body Medical Devices: N/A Cardiac Surgery: No Cholecystectomy: No Ear Surgery: No Endocrine Surgery: No Eye Surgery: No Genitourinary Surgery: Yes (Hernia Repairs ) Gynecologic Surgery: No Hysterectomy: No (UNKNOWN) Joint Replacement: No Neurologic Surgery: No Oral Surgery: No Thoracic Surgery: Yes (right lung biopsy) Other Surgery: Yes (cyst in lung, middle chamber removed) Family History Family Hypercholesterolemia: Yes Social History Alcohol Use: Yes Tobacco Use: No Substance Use: No Allergies-Medications (Allergen,Severity, Reaction): Coded Allergies: codeine (Verified Allergy, Intermediate, 12/20/17) oxycodone (Verified Allergy, Unknown, 12/20/17) Reported Meds & Prescriptions Reported Meds & Active Scripts Active Reported Divalproex DR (Divalproex Sodium) 250 Mg Tabdr 250 Mg PO BID Clonazepam 0.5 Mg Tab 0.5 Mg PO TID Trazodone (Trazodone HCl) 50 Mg Tab 50 Mg PO HS Quetiapine (Quetiapine Fumarate) 400 Mg Tab 600 Mg PO HS Simvastatin 20 Mg Tab 20 Mg PO DAILY Quetiapine (Quetiapine Fumarate) 200 Mg Tab 200 Mg PO DAILY Lamotrigine 200 Mg Tab 200 Mg PO DAILY Aspirin 81 Mg Chew 81 Mg CHEW DAILY Review of Systems ROS Limitations: Altered Mental Status Physical Exam Narrative GENERAL: Patient is awake alert confused not following commands seems agitated and confused SKIN: Warm and dry. HEAD: Atraumatic. Normocephalic. EYES: Pupils equal and round. No scleral icterus. No injection or drainage. ENT: No nasal bleeding or discharge. Mucous membranes pink and moist. NECK: Trachea midline. No JVD. CARDIOVASCULAR: Regular rate and rhythm. RESPIRATORY: No accessory muscle use. GASTROINTESTINAL: Abdomen nondistended. MUSCULOSKELETAL: Extremities . No obvious deformities. NEUROLOGICAL: Awake and alert. But is disoriented in all respects. He is not following commands. He is not listening to anything that is being said to him. He is not speaking back with sensible statements. Possibly delirium on top dimension. Patient has history of dementia Psych patient is obviously agitated secondary to possible confusion due to dementia or delirium on top of dementia but his level of consciousness remains stable I do not think this is delirium. I think it is dementia. He is known to have dementia and recent stressors have exacerbated his problem Data Data Last Documented VS Orders Orders Electrocardiogram (12/20/17:33) Complete Blood Count With Diff (12/20/17 00:) Comprehensive Metabolic Panel (12/20/17:33) Ckmb (Isoenzyme) Profile (12/20/17:) Troponin I (12/20/17 00:33) Blood Culture (12/20/17:33) Lipase (12/20/17:) Urinalysis - C+S If Indicated (12/20/17:) Thyroid Stimulating Hormone (12/20/17 00:) Chest, Single Ap (12/20/17 00:33) Ct Brain W/O Iv Contrast(Rout) (12/20/17 00:33) Drug Screen, Random Urine (12/20/17 00:33) Alcohol (Ethanol) (12/20/17 00:33) Salicylates (Aspirin) (12/20/17 00:33) Tylenol (Acetaminophen) (12/20/17 00:33) CKMB (12/20/17 00:38) CKMB% (12/20/17 00:38) Psych Screen (12/20/17 03:15) Haloperidol Inj (Haldol Inj) (12/20/17 05:30) Diphenhydramine Inj (Benadryl Inj) (12/20/17 05:30) Haloperidol Inj (Haldol Inj) (12/20/17 06:30) Haloperidol Inj (Haldol Inj) (12/20/17 09:15) Diet 1800 Ada Cons Carb (12/20/17 Lunch) Diet Regular Basic (12/20/17 Lunch) Admit Order (Ed Use Only) (12/20/17 ) Labs Laboratory Tests Test 12/20/17 00:38 White Blood Count 4.3 TH/MM3 Red Blood Count 4.38 MIL/MM3 Hemoglobin 13.3 GM/DL Hematocrit 39.3 % Mean Corpuscular Volume 89.7 FL Mean Corpuscular Hemoglobin 30.4 PG Mean Corpuscular Hemoglobin Concent 33.8 % Red Cell Distribution Width 13.3 % Platelet Count 256 TH/MM3 Mean Platelet Volume 8.4 FL Neutrophils (%) (Auto) 46.7 % Lymphocytes (%) (Auto) 33.1 % Monocytes (%) (Auto) 17.7 % Eosinophils (%) (Auto) 2.0 % Basophils (%) (Auto) 0.5 % Neutrophils # (Auto) 2.0 TH/MM3 Lymphocytes # (Auto) 1.4 TH/MM3 Monocytes # (Auto) 0.8 TH/MM3 Eosinophils # (Auto) 0.1 TH/MM3 Basophils # (Auto) 0.0 TH/MM3 CBC Comment DIFF FINAL Differential Comment Urine Color LIGHT-YELLOW Urine Turbidity CLEAR Urine pH 6.0 Urine Specific [place] 1.009 Urine Protein NEG mg/dL Urine Glucose (UA) NEG mg/dL Urine Ketones 10 mg/dL Urine Occult Blood NEG Urine Nitrite NEG Urine Bilirubin NEG Urine Urobilinogen LESS THAN 2.0 MG/DL Urine Leukocyte Esterase NEG Urine RBC LESS THAN 1 /hpf Urine WBC 1 /hpf Urine Squamous Epithelial Cells <1 /hpf Urine Hyaline Casts 2 /lpf Urine Mucus FEW /lpf Microscopic Urinalysis Comment CULT NOT INDICATED Blood Urea Nitrogen 14 MG/DL Creatinine 0.90 MG/DL Random Glucose 104 MG/DL Total Protein 6.8 GM/DL Albumin 3.4 GM/DL Calcium Level 8.6 MG/DL Alkaline Phosphatase 87 U/L Aspartate Amino Transf (AST/SGOT) 30 U/L Alanine Aminotransferase (ALT/SGPT) 40 U/L Total Bilirubin 0.3 MG/DL Sodium Level 143 MEQ/L Potassium Level 3.8 MEQ/L Chloride Level 105 MEQ/L Carbon Dioxide Level 29.1 MEQ/L Anion Gap 9 MEQ/L Estimat Glomerular Filtration Rate 80 ML/MIN Total Creatine Kinase 133 U/L Creatine Kinase MB 2.5 NG/ML Troponin I LESS THAN 0.02 NG/ML Lipase 78 U/L Thyroid Stimulating Hormone 3rd Gen 3.240 uIU/ML Salicylates Level LESS THAN 1.7 MG/DL Urine Opiates Screen NEG Acetaminophen Level LESS THAN 2.0 MCG/ML Urine Barbiturates Screen NEG Urine Amphetamines Screen NEG Urine Benzodiazepines Screen NEG Urine Cocaine Screen NEG Urine Cannabinoids Screen NEG Ethyl Alcohol Level LESS THAN 3 MG/DL MDM Medical Decision Making Medical Screen Exam Complete: Yes Emergency Medical Condition: Yes Differential Diagnosis Dementia worsening due to social stressors versus. Delirium on top of baseline dementia. Versus worsening dementia due to secondary to possible infectious source. Urine will be evaluated chest x-ray will be evaluated labs will be evaluated Narrative Course pt needs Psych eval and possible medication adjustment , pt needed Haldol 3mg IVP and benadryl 25 mg then repeated IM Haldol 3 mg IM now sleeping awaiting psych screen sign out to oncoming attending Diagnosis Primary Impression: Alzheimer's dementia with behavioral disturbance Cleve Tracey MD Dec 20, 2017 06:18
[2017-12-20] MEDS ORDERED: HALOPERIDOL LACTATE 5 MG/ML AMP IM ONE (06:30)
--- NOTE | 2017-12-20 07:17 | PD ---
Data Data Last Documented VS Vital Signs Date Time Temp Pulse Resp B/P (MAP) Pulse Ox O2 Delivery O2 Flow Rate FiO2 12/20/17 05:30 80 16 146/71 (96) 100 12/20/17 00:27 99.1 Orders Orders Electrocardiogram (12/20/17 00:33) Complete Blood Count With Diff (12/20/17 00:33) Comprehensive Metabolic Panel (12/20/17 00:33) Ckmb (Isoenzyme) Profile (12/20/17 00:33) Troponin I (12/20/17 00:33) Blood Culture (12/20/17 00:33) Lipase (12/20/17 00:33) Urinalysis - C+S If Indicated (12/20/17 00:33) Thyroid Stimulating Hormone (12/20/17 00:33) Chest, Single Ap (12/20/17 00:33) Ct Brain W/O Iv Contrast(Rout) (12/20/17 00:33) Drug Screen, Random Urine (12/20/17 00:33) Alcohol (Ethanol) (12/20/17 00:33) Salicylates (Aspirin) (12/20/17 00:33) Tylenol (Acetaminophen) (12/20/17 00:33) CKMB (12/20/17 00:38) CKMB% (12/20/17 00:38) Psych Screen (12/20/17 03:15) Haloperidol Inj (Haldol Inj) (12/20/17 05:30) Diphenhydramine Inj (Benadryl Inj) (12/20/17 05:30) Haloperidol Inj (Haldol Inj) (12/20/17 06:30) Labs Laboratory Tests Test 12/20/17 00:38 White Blood Count 4.3 TH/MM3 Red Blood Count 4.38 MIL/MM3 Hemoglobin 13.3 GM/DL Hematocrit 39.3 % Mean Corpuscular Volume 89.7 FL Mean Corpuscular Hemoglobin 30.4 PG Mean Corpuscular Hemoglobin Concent 33.8 % Red Cell Distribution Width 13.3 % Platelet Count 256 TH/MM3 Mean Platelet Volume 8.4 FL Neutrophils (%) (Auto) 46.7 % Lymphocytes (%) (Auto) 33.1 % Monocytes (%) (Auto) 17.7 % Eosinophils (%) (Auto) 2.0 % Basophils (%) (Auto) 0.5 % Neutrophils # (Auto) 2.0 TH/MM3 Lymphocytes # (Auto) 1.4 TH/MM3 Monocytes # (Auto) 0.8 TH/MM3 Eosinophils # (Auto) 0.1 TH/MM3 Basophils # (Auto) 0.0 TH/MM3 CBC Comment DIFF FINAL Differential Comment Urine Color LIGHT-YELLOW Urine Turbidity CLEAR Urine pH 6.0 Urine Specific [place] 1.009 Urine Protein NEG mg/dL Urine Glucose (UA) NEG mg/dL Urine Ketones 10 mg/dL Urine Occult Blood NEG Urine Nitrite NEG Urine Bilirubin NEG Urine Urobilinogen LESS THAN 2.0 MG/DL Urine Leukocyte Esterase NEG Urine RBC LESS THAN 1 /hpf Urine WBC 1 /hpf Urine Squamous Epithelial Cells <1 /hpf Urine Hyaline Casts 2 /lpf Urine Mucus FEW /lpf Microscopic Urinalysis Comment CULT NOT INDICATED Blood Urea Nitrogen 14 MG/DL Creatinine 0.90 MG/DL Random Glucose 104 MG/DL Total Protein 6.8 GM/DL Albumin 3.4 GM/DL Calcium Level 8.6 MG/DL Alkaline Phosphatase 87 U/L Aspartate Amino Transf (AST/SGOT) 30 U/L Alanine Aminotransferase (ALT/SGPT) 40 U/L Total Bilirubin 0.3 MG/DL Sodium Level 143 MEQ/L Potassium Level 3.8 MEQ/L Chloride Level 105 MEQ/L Carbon Dioxide Level 29.1 MEQ/L Anion Gap 9 MEQ/L Estimat Glomerular Filtration Rate 80 ML/MIN Total Creatine Kinase 133 U/L Creatine Kinase MB 2.5 NG/ML Troponin I LESS THAN 0.02 NG/ML Lipase 78 U/L Thyroid Stimulating Hormone 3rd Gen 3.240 uIU/ML Salicylates Level LESS THAN 1.7 MG/DL Urine Opiates Screen NEG Acetaminophen Level LESS THAN 2.0 MCG/ML Urine Barbiturates Screen NEG Urine Amphetamines Screen NEG Urine Benzodiazepines Screen NEG Urine Cocaine Screen NEG Urine Cannabinoids Screen NEG Ethyl Alcohol Level LESS THAN 3 MG/DL [facility] Medical Record Reviewed: Yes Supervised Visit with FRANCK: No Narrative Course Please refer to the prior provider documentation. The patient is here for psychiatric evaluation. Evidently he has had progressive agitation over the past few days thus prompting today's ED visit. The workup is unremarkable. CBC & BMP Diagram 12/20/17 00:38 Total Protein 6.8, Albumin 3.4, Calcium Level 8.6, Alkaline Phosphatase 87, Aspartate Amino Transf (AST/SGOT) 30, Alanine Aminotransferase (ALT/SGPT) 40, Total Bilirubin 0.3 Lipase normal Troponin less than 0.02 TSH normal Toxicology screens are all negative Urinalysis shows no UTI Last Impressions Head CT 12/20/1732 Signed Impressions: Service Date/Time: Wednesday, December 20, 2017 00:58 - CONCLUSION: 1. Moderate atrophy. 2. No acute findings in the brain. 3. Left maxillary sinus disease without air-fluid level. A Pacheco Lo MD Chest X-Ray 12/20/1732 Signed Impressions: Service Date/Time: Wednesday, December 20, 2017 00:45 - CONCLUSION: No acute findings. The lungs are clear. Pacheco Lo MD The patient is medically clear. Psychiatry spleen order has been placed in patient may benefit from inpatient psych management per discretion of psych service. 8:30 AM: Patient resting comfortably Diagnosis Primary Impression: Agitation Fili Cerna MD Dec 20, 2017 07:17
--- NOTE | 2017-12-20 10:23 | EKG ---
Date Performed: 12/20/2017 Time Performed: 00:40:24 PTAGE: 87 years EKG: Sinus rhythm PATTERN CONSISTENT WITH PULMONARY DISEASE LEFT ANTERIOR FASCICULAR BLOCK ABNORMAL ECG Since the PREVIOUS TRACING , no significant change noted DOCTOR: Henry Cerna Interpretating Date/Time 12/20/2017 10:21:35
--- NOTE | 2017-12-20 12:57 | PD ---
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 He was brought to the emergency department by his daughter Olga Pitts [phone]. Patient was seen in the ED for evaluation on 12/15/17 due to changes in his behavior. and was discharged back to [facility] with a recommendation to move him to the memory care section of the facility Patient has a history of Dementia, Alzhemizer type , DM, CVD, cholesterolemia , pancreatitis and anxiety. Daughter reports that patient was recently moved from [facility] to [facility] in order to keep him and his in the same facility. Per facility patient has been getting up in the middle the night and going to his 's room and trying to get her out of the bed. Staff at [facility] indicate that he has been experiencing insomnia and recently has been crawling on the floor at the facility. He attempted to assist his , Melva, who resides at the same facility and she broke her wrist. Patient is followed by Dr. Colmenares PCP at [facility] ([address] [place] [address], [facility], phone number [phone]) . Per daughter they facility increased his Seroquel from 400mg to 600 mg qhs and recently added Depakote 250 mg qhs. He is also on Lamictal, but I was unable to reach the nurse at the facility for the exact dosage. In the Emergency Room patient was very agitated and was given Haldol and Ativan. Patient currently does not have his hearing aid and the daughter will bring it in tomorrow. On examination patient was awake in a hospital gown, looks his stated age. He is calm making good eye contact, but unable to answer questions due to his inability to hear. Per daughter patient is unsteady and has become more reliable on a walker. Mood is good and affect euthymic. Per report patient has been confused, agitated and forgetful. He has been calling his currently Melva, by the name of his first Alyssa who is . Collaboration with Olga Pitts , daughter states that his father appears to be declining. She states that her mother who is in the same facility does not speak and is very frail. She feels that this is contributing to her step father' s desire to be by her side. She feels that he has been hallucinating and delusional due to his lack of sleep. She has also noted that he will go long periods of times without eating and the staff at the facility have to monitor his dietary intact due to his diabetes. Based on patient's decline and underlying Bipolar Disorder recommendation to admit. Patient discussed with Dr. Casillas and will admit the patient for medication management. Dx: Alzheimer's, Dementia with behavioral disturbances; Insomnia, Bipolar Disorder PFSH Past Medical History Narrative Medical Patient was diagnosed with Bipolar in his 50's. Last seen in ED 12/15/17 for agitation, behavior and insomnia. Hx Anticoagulant Therapy: No (UNKNOWN) Arthritis: Yes Bipolar Disorder: Yes Anxiety: Yes Depression: Yes Cardiovascular Problems: No (UNKNOWN) Chemotherapy: No (UNKNOWN) Cerebrovascular Accident: No (UNKNOWN) Coronary Artery Disease: Yes Diabetes: No (UNKNOWN) Diminished Hearing: Yes (extremely [place]; wears hearing aids) Endocrine: No GERD: No Glaucoma: No Headaches: No Hepatitis: No Hiatal Hernia: Yes (s) Hypertension: Yes Musculoskeletal: Yes Psychiatric: Yes (pts is bi-polar) Respiratory: No (UNKNOWN) Pancreatitis: Yes Seizures: Yes ( CHILD BUT NONE SINCE 8 YEARS OLD) Triglycerides - High: Yes Ulcer: Yes PNEUMOCCOCAL Vaccine (Year): 2010 Past Surgical History Abdominal Surgery: Yes (paula inquinal hernia repair) AICD: No Appendectomy: No Body Medical Devices: N/A Cardiac Surgery: No Cholecystectomy: No Ear Surgery: No Endocrine Surgery: No Eye Surgery: No Genitourinary Surgery: Yes (Hernia Repairs ) Gynecologic Surgery: No Hysterectomy: No (UNKNOWN) Joint Replacement: No Neurologic Surgery: No Oral Surgery: No Thoracic Surgery: Yes (right lung biopsy) Other Surgery: Yes (cyst in lung, middle chamber removed) Psychiatric History Psychiatric History Hx Psychiatric Treatment: Unable to recall History of Inpatient Treatment: Yes Social History Hx Alcohol Use: Yes Hx Tobacco Use: No Hx Substance Use: No Hx of Substance Use Treatment: No Allergies-Medications (Allergen,Severity, Reaction): Coded Allergies: codeine (Verified Allergy, Intermediate, 12/20/17) oxycodone (Verified Allergy, Unknown, 12/20/17) Reported Meds & Prescriptions Reported Meds & Active Scripts Active Reported Divalproex DR (Divalproex Sodium) 250 Mg Tabdr 250 Mg PO BID Clonazepam 0.5 Mg Tab 0.5 Mg PO TID Trazodone (Trazodone HCl) 50 Mg Tab 50 Mg PO HS Quetiapine (Quetiapine Fumarate) 400 Mg Tab 600 Mg PO HS Simvastatin 20 Mg Tab 20 Mg PO DAILY Quetiapine (Quetiapine Fumarate) 200 Mg Tab 200 Mg PO DAILY Lamotrigine 200 Mg Tab 200 Mg PO DAILY Aspirin 81 Mg Chew 81 Mg CHEW DAILY Mental Status Examination Appearance: Appropriate Consciousness: Somnolent Orientation: Person Motor Activity: Abnormal gait (uses a walker) Speech: Unremarkable Language: Other (unable to assess as patient does not have his hearing aids.) Attention and Concentration: Easily Distracted Memory: Impaired Mood: Good Affect: Appropriate Thought Process & Associations: Disorganized Thought Content: Preoccupations, Delusional Hallucination Type: None Delusion Type: Paranoid (easily confused and agitated due to inability to recall) Suicidal Ideation: No Suicidal Plan: No Suicidal Intention: No Homicidal Ideation: No Homicidal Plan: No Homicidal Intention: No Insight: Adequate Judgment: Adequate [facility] Medical Decision Making Medical Record Reviewed: Yes Assessment/Plan Patient 87 year old male who returns to the ED due to increased agitation and behavioral concerns at [facility]. Patient's lives at the same facility and patient attempted to help his causing her to break her wrist. Per staff at [facility] patient is suffering from serious lack of sleep and has a decrease in appetite. Patient is a diabetic and they are having difficulty getting him to eat. Due to increased agitation in the Emergency Department patient was medicated with Haldol and Ativan. Patient discussed with Dr. Casillas and will admit patient. Recommendation discussed with daughter Olga and she is in agreement with the plan. Orders Orders Electrocardiogram (12/20/17 00:33) Complete Blood Count With Diff (12/20/17 00:33) Comprehensive Metabolic Panel (12/20/17 00:33) Ckmb (Isoenzyme) Profile (12/20/17 00:33) Troponin I (12/20/17 00:33) Blood Culture (12/20/17 00:33) Lipase (12/20/17 00:33) Urinalysis - C+S If Indicated (12/20/17 00:33) Thyroid Stimulating Hormone (12/20/17 00:33) Chest, Single Ap (12/20/17 00:33) Ct Brain W/O Iv Contrast(Rout) (12/20/17 00:33) Drug Screen, Random Urine (12/20/17 00:33) Alcohol (Ethanol) (12/20/17 00:33) Salicylates (Aspirin) (12/20/17 00:33) Tylenol (Acetaminophen) (12/20/17 00:33) CKMB (12/20/17 00:38) CKMB% (12/20/17 00:38) Psych Screen (12/20/17 03:15) Haloperidol Inj (Haldol Inj) (12/20/17 05:30) Diphenhydramine Inj (Benadryl Inj) (12/20/17 05:30) Haloperidol Inj (Haldol Inj) (12/20/17 06:30) Haloperidol Inj (Haldol Inj) (12/20/17 09:15) Diet 1800 Ada Cons Carb (12/20/17 Lunch) Diet Regular Basic (12/20/17 Lunch) Results Vital Signs Date Time Temp Pulse Resp B/P (MAP) Pulse Ox O2 Delivery O2 Flow Rate FiO2 12/20/17 05:30 80 16 146/71 (96) 100 12/20/17 00:27 99.1 92 16 157/77 (103) 98 Laboratory Tests Test 12/20/17 00:38 White Blood Count 4.3 Red Blood Count 4.38 Hemoglobin 13.3 Hematocrit 39.3 Mean Corpuscular Volume 89.7 Mean Corpuscular Hemoglobin 30.4 Mean Corpuscular Hemoglobin Concent 33.8 Red Cell Distribution Width 13.3 Platelet Count 256 Mean Platelet Volume 8.4 Neutrophils (%) (Auto) 46.7 Lymphocytes (%) (Auto) 33.1 Monocytes (%) (Auto) 17.7 Eosinophils (%) (Auto) 2.0 Basophils (%) (Auto) 0.5 Neutrophils # (Auto) 2.0 Lymphocytes # (Auto) 1.4 Monocytes # (Auto) 0.8 Eosinophils # (Auto) 0.1 Basophils # (Auto) 0.0 CBC Comment DIFF FINAL Differential Comment Urine Color LIGHT-YELLOW Urine Turbidity CLEAR Urine pH 6.0 Urine Specific Bowman 1.009 Urine Protein NEG Urine Glucose (UA) NEG Urine Ketones 10 Urine Occult Blood NEG Urine Nitrite NEG Urine Bilirubin NEG Urine Urobilinogen LESS THAN 2.0 Urine Leukocyte Esterase NEG Urine RBC LESS THAN 1 Urine WBC 1 Urine Squamous Epithelial Cells <1 Urine Hyaline Casts 2 Urine Mucus FEW Microscopic Urinalysis Comment CULT NOT INDICATED Blood Urea Nitrogen 14 Creatinine 0.90 Random Glucose 104 Total Protein 6.8 Albumin 3.4 Calcium Level 8.6 Alkaline Phosphatase 87 Aspartate Amino Transf (AST/SGOT) 30 Alanine Aminotransferase (ALT/SGPT) 40 Total Bilirubin 0.3 Sodium Level 143 Potassium Level 3.8 Chloride Level 105 Carbon Dioxide Level 29.1 Anion Gap 9 Estimat Glomerular Filtration Rate 80 Total Creatine Kinase 133 Creatine Kinase MB 2.5 Troponin I LESS THAN 0.02 Lipase 78 Thyroid Stimulating Hormone 3rd Gen 3.240 Salicylates Level LESS THAN 1.7 Urine Opiates Screen NEG Acetaminophen Level LESS THAN 2.0 Urine Barbiturates Screen NEG Urine Amphetamines Screen NEG Urine Benzodiazepines Screen NEG Urine Cocaine Screen NEG Urine Cannabinoids Screen NEG Ethyl Alcohol Level LESS THAN 3 Date/Time Source Procedure Growth Status 12/20/17 00:38 Blood Peripheral Aerobic Blood Culture Pending Received 12/20/17 00:38 Blood Peripheral Anaerobic Blood Culture Pending Received Diagnosis Primary Impression: Alzheimer's dementia with behavioral disturbance Additional Impressions: Insomnia Bipolar disorder Agitation Admitting Information Admitting Physician Requests: Admit Condition: Stable Problem Qualifiers Cindy Olvera Dec 20, 2017 12:57
[2017-12-20] MEDS ORDERED: ALUMINUM/MAGNESIUM/SIMETH 30 ML CUP PO PRN (14:15)
[2017-12-20] MEDS ORDERED: MAGNESIUM HYDROXIDE SUSP 30 ML CUP PO PRN (14:15)
[2017-12-20] MEDS ORDERED: ACETAMINOPHEN 325 MG TAB PO PRN (14:15)
[2017-12-20] MEDS ORDERED: OLANZapine IM 10 MG VIAL IM ONE (14:30)
[2017-12-20 16:50] VITALS: BP 122/68; PULSE 85; RESP 12; TEMP 97
[2017-12-20] MEDS: QUEtiapine FUMARATE 200 MG TAB PO SCH (20:52)
[2017-12-21 06:22] VITALS: BP 126/62; PULSE 86; RESP 17; TEMP 98.3; O2SAT 95
[2017-12-21 07:13] LABS: BICARBONATE 28.1 MEQ/L (21.0-32.0); CALCIUM 8.6 MG/DL (8.5-10.1); CHLORIDE 106 MEQ/L (98-107); CHOLESTEROL 151 MG/DL (120-200); CREATININE 0.91 MG/DL (0.60-1.30); GLOMERULAR FILTRATION RATE 79 ML/MIN (>89); GLUCOSE,RANDOM 86 MG/DL (74-106); SODIUM (NA) 144 MEQ/L (136-145); TRIGLYCERIDES 49 MG/DL (42-150)
[2017-12-21 07:15] LABS: CHOLESTEROL/ HDL RATIO 1.94 RATIO; HDL CHOLESTEROL 77.5 MG/DL (40.0-60.0); LDL CHOLESTEROL 64 MG/DL (0-99)
[2017-12-21 07:16] LABS: BLOOD UREA NITROGEN 14 MG/DL (7-18)
--- NOTE | 2017-12-21 10:10 | HHI.HP ---
Provisional Diagnosis Admission Date Dec 20, 2017 at 13:24 [place] I. Severe dementia with behavioral disturbances, history of bipolar disorder Certification of Person's Competence To Provide Express and Informed Consent I have personally examined Paras Molina , a person being served at [facility] on, Dec 21, 2017 09:57. Express and informed consent means consent voluntarily given in writing, by a competent person, after sufficient explanation and disclosure of the subject matter involved to enable the person to make a knowing and willful decision without any element of force, fraud, deceit, duress, or other form of constraint or coercion. This person is 18 years of age or older, is not now known to be incompetent to consent to treatment with a guardian advocate, and does not have a health care surrogate or proxy currently making medical treatment decisions. I have found this person to be one of the following: [] Competent to provide express and informed consent, as defined above, for voluntary admission to this facility and is competent to provide express and informed consent for treatment. He/she has the consistent capacity to make well reasoned, willful, and knowing decisions concerning his or her medical or mental health treatment. The person fully and consistently understands the purpose of the admission for examination/placement and is fully capable of personally exercising all rights assured [place] [x] Incompetent to provide express and informed consent to voluntary admission, and this is incompetent to provide express and informed consent to treatment. The person must be transferred to involuntary status and a petition for a guardian advocate filed with the Circuit Court. [] Refusing to provide express and informed consent to voluntary admission but is competent to provide express and informed consent for treatment. The person must be discharged or transferred to involuntary status. Form shall be completed within 24 hours of a person's arrival at the receiving facility and filed in the clinical record of each person: 1. Admitted on a voluntary basis 2. Permitted to provide express and informed consent to his/her own treatment 3. Allowed to transfer from involuntary to voluntary status 4. Prior to permitting a person to consent to his or her own treatment after having been previously found incompetent to consent to treatment. 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 and 600 mg at bedtime, Lamictal 200 mg, Trazodone 50 mg, Depakote 250 mg twice daily, medical history of Patient has a history of DM, CVD, cholesterolemia , pancreatitis, who was brought to the emergency department by his daughter Olga Pitts [phone]. Patient was seen in the ED for evaluation on 12/15/17 due to changes in his behavior and was discharged back to [facility] with a recommendation to move him to the memory care section of the facility Daughter reports that patient was recently moved from [facility] to [facility] in order to keep him and his in the same facility. Per facility patient has been getting up in the middle the night and going to his 's room and trying to get her out of the bed. Staff at [facility] indicate that he has been experiencing insomnia and recently has been crawling on the floor at the facility. He attempted to assist his , Melva, who resides at the same facility and she broke her wrist. Patient is followed by Dr. Colmenares PCP at [facility] ([address] [place] [address], [facility], phone number [phone]) . Per daughter they facility increased his Seroquel from 400mg to 600 mg qhs and recently added Depakote 250 mg qhs. He is also on Lamictal, but I was unable to reach the nurse at the facility for the exact dosage. Initially in Emergency Room patient was very agitated and was given Haldol and Ativan. Patient currently does not have his hearing aid and the daughter will bring it in tomorrow. On examination patient was awake in a hospital gown, looks his stated age. He is calm making good eye contact, but unable to answer questions due to his inability to hear. Per daughter patient is unsteady and has become more reliable on a walker. Mood is good and affect euthymic. Per report patient has been confused, agitated and forgetful. He has been calling his currently Melva, by the name of his first Alyssa who is . Collaboration with Olga Pitts , daughter states that his father appears to be declining. She states that her mother who is in the same facility does not speak and is very frail. She feels that this is contributing to her step father' s desire to be by her side. She feels that he has been hallucinating and delusional due to his lack of sleep. She has also noted that he will go long periods of times without eating and the staff at the facility have to monitor his dietary intact due to his diabetes. 12/21/2017 the patient was seen today in the psychiatric unit along with nurse in charge Katrina. The patient is sitting in a chair reading the newspaper. He reports feeling okay. Medication is limited because patient is very hard of hearing. The patient says that he is doing okay, he denies pain, denies distress, denies mood symptoms. The patient is confused, he does not know where he is, he does not know the time, he has rome disorganized speech and thought process, but no paranoia, no agitation, no aggressive behavior reported. The patient does not remember the circumstances that brought him to the hospital. He denies suicidal enemas ideation, he denies visual and auditory hallucinations at the moment Review of Systems Constitutional: DENIES: Diaphoretic episodes, Fatigue, Fever, Weight gain, Weight loss, Chills, Dizziness, Change in appetite, Night Sweats Endocrine: DENIES: Heat/cold intolerance, Polydipsia, Polyuria, Polyphagia Eyes: DENIES: Blurred vision, Diplopia, Eye inflammation, Eye pain, Vision loss , Photosensitivity, Double Vision Ears, nose, mouth, throat: DENIES: Tinnitus, Hearing loss, Vertigo, Nasal discharge, Oral lesions, Throat pain, Hoarseness, Ear Pain, Running Nose, Epistaxis, Sinus Pain, Toothache, Odynophagia Respiratory: DENIES: Apneas, Cough, Snoring, Wheezing, Hemoptysis, Sputum production, Shortness of breath Cardiovascular: DENIES: Chest pain, Palpitations, Syncope, Dyspnea on Exertion , PND, Lower Extremity Edema, Orthopnea, Claudication Gastrointestinal: DENIES: Abdominal pain, Black stools, Bloody stools, Constipation, Diarrhea, Nausea, Vomiting, Difficulty Swallowing, Anorexia Genitourinary: DENIES: Sexual dysfunction, Urinary frequency, Urinary incontinence, Urgency, Hematuria, Dysuria, Nocturia, Penile Discharge, Testicular Pain, Testicular Swelling Musculoskeletal: DENIES: Joint pain, Muscle aches, Stiffness, Joint Swelling, Back pain, Neck pain Integumentary: DENIES: Abnormal pigmentation, Nail changes, Pruritus, Rash Hematologic/lymphatic: DENIES: Bruising, Lymphadenopathy Neurologic: DENIES: Abnormal gait, Headache, Localized weakness, Paresthesias, Seizures, Speech Problems, Tremor, Poor Balance Psychiatric: COMPLAINS OF: Agitation, DENIES: Anxiety, Confusion, Mood changes , Depression, Hallucinations, Suicidal Ideation, Homicidal Ideation, Delusions Substance Abuse History Drugs/Alcohol past 12 months Patient has history of alcohol abuse in the past Past Family Social History Coded Allergies: codeine (Verified Allergy, Intermediate, 12/20/17) oxycodone (Verified Allergy, Unknown, 12/20/17) Reported Medications Divalproex DR (Divalproex DR) 250 Mg Tabdr, 250 MG PO BID for Control Seizures, #60 TAB 0 Refills 12/15/17 Clonazepam (Clonazepam) 0.5 Mg Tab, 0.5 MG PO TID, #90 TAB 0 Refills 12/15/17 Trazodone (Trazodone) 50 Mg Tab, 50 MG PO HS for Control Depression, #30 TAB 0 Refills 12/15/17 Quetiapine (Quetiapine) 400 Mg Tab, 600 MG PO HS, #30 TAB 0 Refills 12/15/17 Simvastatin (Simvastatin) 20 Mg Tab, 20 MG PO DAILY for Cholesterol Management, #30 TAB 0 Refills 12/15/17 Quetiapine (Quetiapine) 200 Mg Tab, 200 MG PO DAILY, #30 TAB 0 Refills 12/15/17 Lamotrigine (Lamotrigine) 200 Mg Tab, 200 MG PO DAILY for Control Seizures, #30 TAB 0 Refills 12/15/17 Aspirin (Aspirin) 81 Mg Chew, 81 MG CHEW DAILY, TAB 0 Refills 12/15/17 Discontinued Reported Medications Buspirone (Buspirone) 15 Mg Tab, 15 MG PO TID for Anxiety, TAB 0 Refills 12/15/17 Risperidone (Risperidone) 0.5 Mg Tab, 0.5 MG PO BID, #30 TAB 0 Refills 12/15/17 Losartan (Losartan) 50 Mg Tab, 50 MG PO BID for Blood Pressure Management, #60 TAB 0 Refills 12/15/17 Carvedilol (Carvedilol) 6.25 Mg Tab, 6.25 MG PO BID, #60 TAB 0 Refills 12/15/17 Potassium Chloride ER (Potassium Chloride ER) 20 Meq Tab, 20 MEQ PO DAILY for Electrolyte Replacement, #30 TAB 0 Refills 12/15/17 Omeprazole (Omeprazole) 40 Mg Cap, 40 MG PO DAILY, #30 CAP 0 Refills 12/15/17 Loratadine Odt (Loratadine Odt) 10 Mg Tab, 10 MG PO DAILY for Allergy Management , TAB 0 Refills 12/15/17 Furosemide (Furosemide) 40 Mg Tab, 40 MG PO DAILY, #30 TAB 0 Refills 12/15/17 Citalopram (Citalopram) 20 Mg Tab, 20 MG PO DAILY for Control Depression, #30 TAB 0 Refills 12/15/17 Calcium Carbonate-Cholecalciferol (Calcium 600 with Vitamin D) 600-400 mg-Unit Tab, 1 TAB PO DAILY for Calcium Supplement, TAB 0 Refills 12/15/17 Aspirin (Aspirin) 81 Mg Chew, 81 MG CHEW DAILY, TAB 0 Refills 12/15/17 Loperamide (Loperamide) 2 Mg Cap, 2 MG PO DIRECTED Y for DIARRHEA, CAP 0 Refills One capsule after each loose stool. Not to exceed 8 capsules per day. 12/15/17 Clonidine (Clonidine) 0.1 Mg Tab, 0.1 MG PO DAILY Y for INCREASE IN BLOOD PRESSURE, #60 TAB 0 Refills 12/15/17 Simvastatin (Simvastatin) 40 Mg Tab, 40 MG PO HS for Cholesterol Management, # 30 TAB 0 Refills 12/15/17 Melatonin (Melatonin) 5 Mg Tab, 5 MG PO HS for Provide Good Sleep, TAB 0 Refills 12/15/17 Donepezil (Donepezil) 10 Mg Tab, 10 MG PO HS for Dementia, #30 TAB 0 Refills 12/15/17 Meclizine (Meclizine) 12.5 Mg Tab, 12.5 MG PO TID Y for VERTIGO, TAB 0 Refills 12/15/17 Trazodone Hcl (Trazodone Hcl) 50 Mg Tab, 50 MG PO HS, TAB 04/19/13 Quetiapine XR 400 mg (Seroquel XR 400 mg) 400 Mg Tab, 400 MG OR HS 10/22/11 Lamotrigine (Lamictal) 200 Mg Tab, 200 MG PO HS 10/08/11 Aspirin (Aspirin) 81 Mg Tab, 81 MG PO HS 01/23/11 Simvastatin (Simvastatin) 20 Mg Tab, 20 MG PO HS 01/23/11 Current Medications Medications (Trade) Dose Ordered Sig/Michael Route Start Time Stop Time Status Last Admin (Tylenol) 650 mg Q4H PRN PO 12/20/17 14:15 (Milk Of Magnesia Liq) 30 ml DAILY PRN PO 12/20/17 14:15 (Mag-Al Plus Susp Liq) 30 ml Q6H PRN PO 12/20/17 14:15 (SEROquel) 200 mg HS PO 12/20/17 21:00 12/20/17 20:52 Family Psych History No family psychiatric history Social History Patient lives in [facility], he is , has 6 kids, retired Patient's Strengths (min. 2) Family support Physical Exam Patient has marked psychomotor retardation, but no tremors, no EPS, Vital Signs Vital Signs Date Time Temp Pulse Resp B/P (MAP) Pulse Ox O2 Delivery O2 Flow Rate FiO2 12/21/17 06:22 98.3 86 17 126/62 (83) 95 Lab Results Test 12/21/17 06:16 Blood Urea Nitrogen 14 MG/DL Creatinine 0.91 MG/DL Random Glucose 86 MG/DL Calcium Level 8.6 MG/DL Sodium Level 144 MEQ/L Potassium Level 4.3 MEQ/L Chloride Level 106 MEQ/L Carbon Dioxide Level 28.1 MEQ/L Anion Gap 10 MEQ/L Estimat Glomerular Filtration Rate 79 ML/MIN Triglycerides Level 49 MG/DL Cholesterol Level 151 MG/DL LDL Cholesterol 64 MG/DL HDL Cholesterol 77.5 MG/DL Cholesterol/HDL Ratio 1.94 RATIO Date/Time Source Procedure Growth Status 12/20/17 00:38 Blood Peripheral Aerobic Blood Culture Pending Received 12/20/17 00:38 Blood Peripheral Anaerobic Blood Culture Pending Received Mental Status Examination Appearance: Appropriate Consciousness: Clouded Orientation: Person Motor Activity: Abnormal gait (uses a walker) Speech: Unremarkable Language: Other (unable to assess as patient does not have his hearing aids.) Attention and Concentration: Easily Distracted Memory: Impaired Mood: Good Affect: Appropriate Thought Process & Associations: Disorganized Thought Content: Preoccupations, Delusional Hallucination Type: None Delusion Type: Paranoid (easily confused and agitated due to inability to recall) Suicidal Ideation: No Suicidal Plan: No Suicidal Intention: No Homicidal Ideation: No Homicidal Plan: No Homicidal Intention: No Insight: Poor Judgment: Poor Assessment & Plan Problem List: (1) Alzheimer's dementia with behavioral disturbance ICD Codes: G30.9 - Alzheimer's disease, unspecified; F02.81 - Dementia in other diseases classified elsewhere with behavioral disturbance Status: Acute Assessment & Plan: On psychiatric evaluation today the patient presents calm, superficially cooperative, poorly reliable due to the level of confusion and memory impairment. Patient denies mood symptoms, denies distress, denies anxiety, denies suicidal enemas ideation, he denies visual and auditory hallucinations. He does not remember the reason of his hospitalization, is completely disoriented in time and place. Patient has been allegedly agitated and aggressive in a residential facility, to the point that he broke the wrist of his . Patient has an elevated risk of danger to self and other due to these episodes of behavioral dysregulation, which is most probably part of his neurocognitive process. Patient also has history of bipolar disorder, anxiety, multiple psychiatric hospitalizations. He has been in very high doses of psychotropics, as mentioned above. At this moment I am just going to start the Seroquel at 200 mg at bedtime. Also would restart the Depakote 250 mg twice daily. Ordered Depakote levels. Medication will be raised as patient needs. [employer] worker intervention for psychosocial assessment, individual and group therapies, to coordinate safe discharge. Consult psychiatry for second opinion. Assessment & Plan Estimated LOS: Luis Angel Shaver MD Dec 21, 2017 10:10
[2017-12-21 12:53] LABS: HEMOGLOBIN A1C 5.4 % (4.3-6.0)
[2017-12-21 18:21] VITALS: BP 163/74; PULSE 92; RESP 18; TEMP 97.1; O2SAT 98
[2017-12-21] MEDS: DIVALPROEX SODIUM DELAYED RELEASE 250 MG TAB PO SCH (20:40)
[2017-12-21] MEDS: QUEtiapine FUMARATE 200 MG TAB PO SCH (20:40)
[2017-12-21] MEDS: traZODone HCL 50 MG TAB PO SCH (21:00)
[2017-12-22 06:02] VITALS: BP 116/55; PULSE 92; RESP 17; TEMP 98.3; O2SAT 95
[2017-12-22] MEDS: PRAVASTATIN SOD 40 MG TAB PO SCH (09:00)
[2017-12-22] MEDS: DIVALPROEX SODIUM DELAYED RELEASE 250 MG TAB PO SCH ×2 (09:00→21:35)
[2017-12-22] MEDS: ASPIRIN 81 MG CHEW TAB CHEW SCH (09:00)
[2017-12-22 18:39] VITALS: BP 124/77; PULSE 54; RESP 16; TEMP 97.5; O2SAT 96
[2017-12-22] MEDS: QUEtiapine FUMARATE 200 MG TAB PO SCH (21:35)
[2017-12-22] MEDS: traZODone HCL 50 MG TAB PO SCH (21:35)
--- NOTE | 2017-12-22 22:09 | PD.PSY.CON ---
Provisional Diagnosis Admission Date Dec 20, 2017 at 13:24 [place] I. Severe dementia with behavioral disturbances, history of bipolar disorder History of Present Illness Service Psychiatry Consult Requested By Dr. 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 and 600 mg at bedtime, Lamictal 200 mg, Trazodone 50 mg, Depakote 250 mg twice daily, medical history of Patient has a history of DM, CVD, cholesterolemia , pancreatitis, who was brought to the emergency department by his daughter Olga Pitts . Patient was seen in the ED for evaluation on 12/15/17 due to changes in his behavior and was discharged back to [facility] with a recommendation to move him to the memory care section of the facility Daughter reports that patient was recently moved from [facility] to [facility] in order to keep him and his in the same facility. Per facility patient has been getting up in the middle the night and going to his 's room and trying to get her out of the bed. Staff at [facility] indicate that he has been experiencing insomnia and recently has been crawling on the floor at the facility. He attempted to assist his , Melva, who resides at the same facility and she broke her wrist. Patient is followed by Dr. Colmenares PCP at [facility] ([address] [place] [address], [facility], phone number [phone]) . Per daughter they facility increased his Seroquel from 400mg to 600 mg qhs and recently added Depakote 250 mg qhs. He is also on Lamictal, but I was unable to reach the nurse at the facility for the exact dosage. Initially in Emergency Room patient was very agitated and was given Haldol and Ativan. Patient currently does not have his hearing aid and the daughter will bring it in tomorrow. On examination patient was awake in a hospital gown, looks his stated age. He is calm making good eye contact, but unable to answer questions due to his inability to hear. Per daughter patient is unsteady and has become more reliable on a walker. Mood is good and affect euthymic. Per report patient has been confused, agitated and forgetful. He has been calling his currently Melva, by the name of his first Alyssa who is . Collaboration with Olga Pitts , daughter states that his father appears to be declining. She states that her mother who is in the same facility does not speak and is very frail. She feels that this is contributing to her step father' s desire to be by her side. She feels that he has been hallucinating and delusional due to his lack of sleep. She has also noted that he will go long periods of times without eating and the staff at the facility have to monitor his dietary intact due to his diabetes. 12/21/2017 the patient was seen today in the psychiatric unit along with nurse in charge Katrina. The patient is sitting in a chair reading the newspaper. He reports feeling okay. Medication is limited because patient is very hard of hearing. The patient says that he is doing okay, he denies pain, denies distress, denies mood symptoms. The patient is confused, he does not know where he is, he does not know the time, he has rome disorganized speech and thought process, but no paranoia, no agitation, no aggressive behavior reported. The patient does not remember the circumstances that brought him to the hospital. 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 Patient was found sitting in day room noted B, cooperative, confused alert and oriented only to person. Patient states that he was feeling okay" was unable to provide any significant history due to neurocognitive deficits. Collateral information obtained by patient's daughter reported that patient had been moved into a house of study with her mother so that they would be together but was found at times to be attempting to pick her mother up from the bed. Because her to have a fall and break her wrist but denies patient having hurt his causing the fracture. She states also the patient has had difficulty with sleep recently it would be up during the night. Discussion of consent for continuation of psychotropic medications was reviewed with her and she had provided consent that she is patient's healthcare surrogate during this admission. Review of Systems Except as stated in HPI: all other systems reviewed are Neg Past Family Social History Coded Allergies: codeine (Verified Allergy, Intermediate, 12/20/17) oxycodone (Verified Allergy, Unknown, 12/20/17) Reported Medications Divalproex DR (Divalproex DR) 250 Mg Tabdr, 250 MG PO BID for Control Seizures, #60 TAB 0 Refills 12/15/17 Clonazepam (Clonazepam) 0.5 Mg Tab, 0.5 MG PO TID, #90 TAB 0 Refills 12/15/17 Trazodone (Trazodone) 50 Mg Tab, 50 MG PO HS for Control Depression, #30 TAB 0 Refills 12/15/17 Quetiapine (Quetiapine) 400 Mg Tab, 600 MG PO HS, #30 TAB 0 Refills 12/15/17 Simvastatin (Simvastatin) 20 Mg Tab, 20 MG PO DAILY for Cholesterol Management, #30 TAB 0 Refills 12/15/17 Quetiapine (Quetiapine) 200 Mg Tab, 200 MG PO DAILY, #30 TAB 0 Refills 12/15/17 Lamotrigine (Lamotrigine) 200 Mg Tab, 200 MG PO DAILY for Control Seizures, #30 TAB 0 Refills 12/15/17 Aspirin (Aspirin) 81 Mg Chew, 81 MG CHEW DAILY, TAB 0 Refills 12/15/17 Current Medications Medications (Trade) Dose Ordered Sig/Michael Route Start Time Stop Time Status Last Admin (Tylenol) 650 mg Q4H PRN PO 12/20/17 14:15 (Milk Of Magnesia Liq) 30 ml DAILY PRN PO 12/20/17 14:15 (Mag-Al Plus Susp Liq) 30 ml Q6H PRN PO 12/20/17 14:15 (SEROquel) 200 mg HS PO 12/20/17 21:00 12/22/17 21:35 (Aspirin Chew) 81 mg DAILY CHEW 12/22/17 09:00 12/22/17 09:00 (Depakote Dr) 250 mg BID PO 12/21/17 21:00 12/22/17 21:35 (Desyrel) 50 mg HS PO 12/21/17 21:00 Future hold 12/22/17 21:35 (Pravachol) 40 mg DAILY PO 12/22/17 09:00 12/22/17 09:00 Family Psych History Unable to assess due to patient's neurocognitive deficits. Social History , domiciled at his nursing facility, unemployed. Patient's Strengths (min. 2) Family support Physical Exam Not noted to be acute distress, no gross motor of maladies, no signs of tremor or EPS, no psychomotor agitation or retardation. Vital Signs Vital Signs Date Time Temp Pulse Resp B/P (MAP) Pulse Ox O2 Delivery O2 Flow Rate FiO2 12/22/17 18:39 97.5 54 16 124/77 (93) 96 I/O 12/22/17 12/22/17 12/23/17 08:00 16:00 00:00 Intake Total 720 ml 120 ml Balance 720 ml 120 ml Lab Results Date/Time Source Procedure Growth Status 12/20/17 00:38 Blood Peripheral Aerobic Blood Culture - Preliminary NO GROWTH IN 2 DAYS Resulted 12/20/17 00:38 Blood Peripheral Anaerobic Blood Culture - Preliminary NO GROWTH IN 2 DAYS Resulted Mental Status Examination Appearance: Appropriate Consciousness: Clouded Orientation: Person Motor Activity: Abnormal gait (uses a walker) Speech: Unremarkable Language: Other (unable to assess as patient does not have his hearing aids.) Attention and Concentration: Easily Distracted Memory: Impaired Mood: Good Affect: Appropriate Thought Process & Associations: Disorganized Thought Content: Preoccupations Hallucination Type: None Delusion Type: None Suicidal Ideation: No Suicidal Plan: No Suicidal Intention: No Homicidal Ideation: No Homicidal Plan: No Homicidal Intention: No Insight: Poor Judgment: Poor Assessment & Plan Problem List: (1) Alzheimer's dementia with behavioral disturbance ICD Codes: G30.9 - Alzheimer's disease, unspecified; F02.81 - Dementia in other diseases classified elsewhere with behavioral disturbance Status: Acute Assessment & Plan I have seen and examined this patient, reviewed the documentation, discussed personally with Dr. Casillas, and I agree and concur with his assessment and plan. Consult appreciated. Patient to continue current treatment, we will continue to monitor mood and behavior. Discharge planning in progress. Discharge Planning Patient return back to the nursing facility once psychiatrically stable. Rich Ospina MD Dec 22, 2017 22:09
[2017-12-23 06:19] VITALS: BP 141/79; PULSE 88; RESP 14; TEMP 98.6; O2SAT 92
[2017-12-23] MEDS: ASPIRIN 81 MG CHEW TAB CHEW SCH (09:09)
[2017-12-23] MEDS: PRAVASTATIN SOD 40 MG TAB PO SCH (09:10)
[2017-12-23] MEDS: DIVALPROEX SODIUM DELAYED RELEASE 250 MG TAB PO SCH ×2 (09:10→20:49)
--- NOTE | 2017-12-23 17:28 | HHI.PYPN ---
Subjective Remarks Patient seen for follow-up, chart reviewed. Discussion nursing staff reported the patient with no behavioral disturbances, compliant and pleasant with staff. Patient was found in the room noted B, cooperative, continues to be confused alert and oriented only to person. Patient reports having slept well, his mood has been "good" eating and drinking well. No aggressive behaviors or any behavioral disturbances. Review of Systems Except as stated in HPI: all other systems reviewed are Neg Mental Status Examination Appearance: Appropriate Consciousness: Clouded Orientation: Person Motor Activity: Abnormal gait (uses a walker) Speech: Unremarkable Language: Other (unable to assess as patient does not have his hearing aids.) Attention and Concentration: Easily Distracted Memory: Impaired Mood: Good Affect: Appropriate Thought Process & Associations: Disorganized Thought Content: Preoccupations Hallucination Type: None Delusion Type: None Suicidal Ideation: No Suicidal Plan: No Suicidal Intention: No Homicidal Ideation: No Homicidal Plan: No Homicidal Intention: No Insight: Poor Judgment: Poor Results Labs Date/Time Source Procedure Growth Status 12/20/17 00:38 Blood Peripheral Aerobic Blood Culture - Preliminary NO GROWTH IN 3 DAYS Resulted 12/20/17 00:38 Blood Peripheral Anaerobic Blood Culture - Preliminary NO GROWTH IN 3 DAYS Resulted Vitals/IOs Vital Signs Date Time Temp Pulse Resp B/P (MAP) Pulse Ox O2 Delivery O2 Flow Rate FiO2 12/23/17 06:19 98.6 88 14 141/79 (99) 92 Intake and Output 12/23/17 12/23/17 12/24/17 08:00 16:00 00:00 Intake Total 480 ml 120 ml Balance 480 ml 120 ml Assessment & Plan Problem List: (1) Alzheimer's dementia with behavioral disturbance ICD Codes: G30.9 - Alzheimer's disease, unspecified; F02.81 - Dementia in other diseases classified elsewhere with behavioral disturbance Status: Acute Assessment & Plan Patient this time continues with baseline confusion secondary to neurocognitive deficits. No noted behavioral disturbances recently or since admission. Patient has a compliant with treatment. Patient about 5 hours of sleep last evening but as per nursing reported in chair during the night at times. Patient has been receiving trazodone 50 mg p.o. at bedtime for sleep disturbance. We will continue to monitor sleep disturbance as this was the triggering factor to patient's recent agitation and nursing facility. We will continue to monitor mood and behavior. Unclear whether patient may return to nursing facility due to recent aggressive behavior there.. Discharge planning in progress. Justification for Cont. Inpt. At risk for decompensation at lower level care. Rich Ospina MD December 23, 2017 17:28
[2017-12-23 17:52] VITALS: BP 126/64; PULSE 103; RESP 16; TEMP 97.1; O2SAT 93
[2017-12-23] MEDS: traZODone HCL 50 MG TAB PO SCH (20:49)
[2017-12-23] MEDS: QUEtiapine FUMARATE 200 MG TAB PO SCH (20:49)
[2017-12-23 21:00] VITALS: BP 113/56; PULSE 54; RESP 20
[2017-12-24 05:55] VITALS: BP 107/55; PULSE 76; RESP 16; TEMP 98.7; O2SAT 94
[2017-12-24] MEDS: PRAVASTATIN SOD 40 MG TAB PO SCH (10:01)
[2017-12-24] MEDS: ASPIRIN 81 MG CHEW TAB CHEW SCH (10:02)
[2017-12-24] MEDS: DIVALPROEX SODIUM DELAYED RELEASE 250 MG TAB PO SCH ×2 (10:02→20:09)
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
[2017-12-24 18:00] VITALS: BP 135/68; PULSE 88; RESP 16; TEMP 98.2; O2SAT 95
[2017-12-24] MEDS: traZODone HCL 50 MG TAB PO SCH (20:09)
[2017-12-24] MEDS: QUEtiapine FUMARATE 200 MG TAB PO SCH (20:09)
--- NOTE | 2017-12-24 22:06 | HHI.PYPN ---
Subjective Remarks Patient seen for follow up; chart reviewed. Discussion nursing staff reported the patient to be somewhat intrusive at times with other patients butts appearing to be wanting to help others on the unit. Patient was found ambulating on unit noted B, cooperative. Patient continues with baseline confusion secondary to neurocognitive deficits. Patient denies any difficulty with sleep, reports good appetite, reports tolerating medications well. Review of Systems Except as stated in HPI: all other systems reviewed are Neg Mental Status Examination Appearance: Appropriate Consciousness: Clouded Orientation: Person Motor Activity: Abnormal gait (uses a walker) Speech: Unremarkable Language: Other (unable to assess as patient does not have his hearing aids.) Fund of Knowledge: Inadequate Attention and Concentration: Easily Distracted Memory: Impaired Mood: Good Affect: Appropriate Thought Process & Associations: Disorganized Thought Content: Preoccupations Hallucination Type: None Delusion Type: None Suicidal Ideation: No Suicidal Plan: No Suicidal Intention: No Homicidal Ideation: No Homicidal Plan: No Homicidal Intention: No Insight: Poor Judgment: Poor Results Labs Date/Time Source Procedure Growth Status 12/20/17 00:38 Blood Peripheral Aerobic Blood Culture - Preliminary NO GROWTH IN 4 DAYS Resulted 12/20/17 00:38 Blood Peripheral Anaerobic Blood Culture - Preliminary NO GROWTH IN 4 DAYS Resulted Vitals/IOs Vital Signs Date Time Temp Pulse Resp B/P (MAP) Pulse Ox O2 Delivery O2 Flow Rate FiO2 12/24/17 18:00 98.2 88 16 135/68 (90) 95 Intake and Output 12/24/17 12/24/17 12/25/17 08:00 16:00 00:00 Intake Total 480 ml 240 ml Balance 480 ml 240 ml Assessment & Plan Problem List: (1) Alzheimer's dementia with behavioral disturbance ICD Codes: G30.9 - Alzheimer's disease, unspecified; F02.81 - Dementia in other diseases classified elsewhere with behavioral disturbance Status: Acute Assessment & Plan Estimated LOS: days Justification for Cont. Inpt. At risk for further decompensation if at lower level of care. Discharge Planning Return back to nursing facility Rich Ospina MD December 24, 2017 22:06
[2017-12-25 05:22] VITALS: BP 121/59; PULSE 73; RESP 16; TEMP 98.2; O2SAT 95
[2017-12-25 06:24] VITALS: BP 121/59; PULSE 73; RESP 16; TEMP 98.2; O2SAT 95
[2017-12-25] MEDS: ASPIRIN 81 MG CHEW TAB CHEW SCH (09:16)
[2017-12-25] MEDS: DIVALPROEX SODIUM DELAYED RELEASE 250 MG TAB PO SCH (09:16)
[2017-12-25] MEDS: PRAVASTATIN SOD 40 MG TAB PO SCH (09:16)
[2017-12-25] MEDS ORDERED: PRAV40TA PO (11:14)
[2017-12-25] MEDS ORDERED: DIVA250T PO (11:14)
[2017-12-25] MEDS ORDERED: ASPI-516 CHEW (11:14)
[2017-12-25] MEDS ORDERED: QUET1TAB9 PO (11:14)
[2017-12-25] MEDS ORDERED: TRAZ50TA12 PO (11:14)
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
== END 2017-12-25 15:30 | DRG 57 ==
LOC: NEPE 00:22 → NEDA 13:24 → H250 14:30
PROVIDERS: ADMIT Student in an Organized Health Care Education/Training Program; ATTEND Student in an Organized Health Care Education/Training Program
DX: G30.9 Alzheimer's disease, unspecified (principal); F02.81 Dementia in other diseases classified elsewhere, unspecified severity, with behavioral disturbance; E11.9 Type 2 diabetes mellitus without complications; F31.9 Bipolar disorder, unspecified; F41.9 Anxiety disorder, unspecified; M19.90 Unspecified osteoarthritis, unspecified site; I25.10 Atherosclerotic heart disease of native coronary artery without angina pectoris; H91.90 Unspecified hearing loss, unspecified ear; I10 Essential (primary) hypertension; G47.00 Insomnia, unspecified; Z88.5 Allergy status to narcotic agent
CPT/HCPCS: 70450; 71045; 80048; 80053; 80061; 80164; 80307; 81001; 82550; 82552; 83036; 83690; 84443; 84484; 85025; 87040; 93005; 96372; 96374; 96375; 96376; J1200; J1630

== ENCOUNTER 2018-01-11 21:36 | Emergency (ER) | payer MEDICARE ==
[~2018-01-11 21:36] MED LIST changes: -CLON0.5T PO; -LAMO200T PO; +PRAV40TA PO; -QUET400T PO; -SIMV20TA PO
[2018-01-11 21:47] VITALS: BP 174/89; PULSE 88; RESP 16; TEMP 98.4; O2SAT 97
[2018-01-11 21:54] VITALS: RESP 16; O2SAT 97
--- NOTE | 2018-01-11 21:59 | PD ---
HPI Chief Complaint: Altered Mental Status Time Seen by Provider: 21:45 Travel History International Travel<30 days: No Contact w/Intl Traveler<30days: No Traveled to known affect area: No History of Present Illness HPI The patient is an 87 year old male who presents to the [facility] emergency department with a history of slumping over with a decreased level of consciousness at the recreational room of his long term prior to arrival. The patient reportedly initially had a GCS of 7. The patient was uncooperative with formal neurologic testing although he was noted to move all extremities equally prior to arrival. The patient on arrival is whispering any answers questions. The patient is able to state his name. The patient is otherwise not oriented to place, time, or situation. The patient was noted by ambulance services to have pinpoint pupils. The patient's blood sugar prior to arrival was reported 108. No other history is able to be obtained regarding the patient 's past medical history or review of systems from the patient, although he does deny having any pain. According to ambulance services there was some question as to the validity of the patient's altered mentation as when they would attempt to examine his eyes he would squeeze his eyes tightly shut. Also when they were attempting to assess his strength and hold his hand up he would not hold it up on his own, however he would gently put it down at his side without hitting himself in the face. They report that the patient does have a history of psychiatric disorder. [facility] Past Medical History Narrative Medical The patient's past medical history according to the electronic medical record consists of lesion of the lung status post right middle lobectomy and resultant right empyema in January 2011, bipolar disorder, history of pancreatitis, history of hyperlipidemia, anemia, hypocalcemia, history of multiple lipomas. Hx Anticoagulant Therapy: No (UNKNOWN) Arthritis: Yes Asthma: No Autoimmune Disease: No Bipolar Disorder: Yes Anxiety: Yes Depression: Yes Heart Rhythm Problems: No Cancer: No Cardiovascular Problems: No High Cholesterol: No Chemotherapy: No (UNKNOWN) Chest Pain: No Congestive Heart Failure: No COPD: No Cerebrovascular Accident: No (UNKNOWN) Coronary Artery Disease: Yes Diabetes: Yes Patient Takes Glucophage: No Diminished Hearing: Yes (extremely [place]; wears hearing aids) Endocrine: No GERD: No Glaucoma: No Genitourinary: No Headaches: No Hepatitis: No Hiatal Hernia: Yes () Hypertension: Yes Immune Disorder: No Kidney Stones: No Musculoskeletal: Yes Neurologic: No Psychiatric: Yes (Bipolar, dementia, anxiety, and alcoholism) Reproductive: No Respiratory: No (UNKNOWN) Immunizations Current: Yes Migraines: No Pancreatitis: Yes Radiation Therapy: No Renal Failure: No Seizures: Yes (As a kid) Sickle Cell Disease: No Sleep Apnea: No Thyroid Disease: No Triglycerides - High: Yes Ulcer: Yes PNEUMOCCOCAL Vaccine (Year): 2010 Past Surgical History Narrative Surgical The patient's past surgical history is significant for right knee surgery, right and left rotator cuff repairs, cataract surgery, hernia repair. Abdominal Surgery: Yes (paula inquinal hernia repair) AICD: No Appendectomy: No Arteriovenous Shunt: No Body Medical Devices: N/A Cardiac Surgery: No Cholecystectomy: No Ear Surgery: No Endocrine Surgery: No Eye Surgery: No Genitourinary Surgery: Yes (Hernia Repairs ) Gynecologic Surgery: No Hysterectomy: No (UNKNOWN) Insulin Pump: No Joint Replacement: No Neurologic Surgery: No Oral Surgery: No Pacemaker: No Thoracic Surgery: Yes (right lung biopsy) Other Surgery: Yes (cyst in lung, middle chamber removed) Family History Family Hypercholesterolemia: Yes Social History Alcohol Use: Yes Tobacco Use: No Substance Use: No Allergies-Medications (Allergen,Severity, Reaction): Coded Allergies: codeine (Verified Allergy, Intermediate, 01/11/18) oxycodone (Verified Allergy, Unknown, 01/11/18) Reported Meds & Prescriptions Reported Meds & Active Scripts Active Quetiapine (Quetiapine Fumarate) 200 Mg Tab 200 Mg PO HS [address] (Divalproex Sodium) 250 Mg Tabdr 250 Mg PO BID 30 Days Pravachol (Pravastatin) 40 Mg Tab 40 Mg PO DAILY 30 Days Trazodone (Trazodone HCl) 50 Mg Tab 50 Mg PO HS 30 Days Aspirin 81 Mg Chew 81 Mg CHEW DAILY 30 Days Review of Systems ROS Limitations: Altered Mental Status Skin: No Rash Neurologic: Positive: Weakness (Generalized weakness), Change in Mentation Physical Exam Narrative General: The patient is a well-developed well-nourished male in no acute distress, drowsy on arrival. Head and Neck exam: Head is normocephalic atraumatic. Eyes: Pupils are equal round and reactive to light and 2 mm on exam. Nose: Midline septum with pink mucous membranes Mouth: Dentition unremarkable. Moist mucus membranes. Posterior oropharynx is not erythematous. No tonsillar hypertrophy. Uvula midline. Airway patent. Neck: No palpable lymphadenopathy. No nuchal rigidity. No thyromegaly. Cardiovascular: Regular rate and rhythm without murmurs, gallops, or rubs. No pulse deficit to the extremities on simultaneous auscultation and palpation of his radial or. Lungs: Clear to auscultation bilaterally. No wheezes, rhonchi, or rales. Abdomen: Soft, without tenderness to palpation in all 4 quadrants of the abdomen. No guarding, rebound, or rigidity. Normal bowel sounds are audible. No tenderness on palpation of McBurney's point. Extremities: No clubbing or cyanosis. The patient has trace pedal edema. 2+ pulses in all 4 extremities. No calf tenderness on palpation Back: No costovertebral angle tenderness to palpation. Neurologic Exam: The patient is oriented to person, however not place, time, or situation. Cranial nerves 2-12 were intact on exam. Strength is 5/5 in all 4 extremities. No sensory deficits noted. Skin Exam: No rash noted. Intact skin that is warm and dry. Data Data Last Documented VS Vital Signs Date Time Temp Pulse Resp B/P (MAP) Pulse Ox O2 Delivery O2 Flow Rate FiO2 01/11/18 21:54 16 97 Room Air 01/11/18 21:47 98.4 88 Orders Orders Electrocardiogram (01/11/18 21:52) Complete Blood Count With Diff (01/11/18 21:52) Comprehensive Metabolic Panel (01/11/18 21:52) Creatine Kinase (Cpk) (01/11/18 21:52) Ckmb (Isoenzyme) Profile (01/11/18 21:52) Troponin I (01/11/18 21:52) B-Type Natriuretic Peptide (01/11/18 21:52) Prothrombin Time / Inr (Pt) (01/11/18 21:52) Act Partial Throm Time (Ptt) (01/11/18 21:52) Lipase (01/11/18 21:52) Urinalysis - C+S If Indicated (01/11/18 21:52) Magnesium (Mg) (01/11/18 21:52) Valproic Acid (Depakene) (01/11/18 21:52) Ammonia (01/11/18 21:52) Thyroid Stimulating Hormone (01/11/18 21:52) Chest, Single Ap (01/11/18 21:52) Ct Brain W/O Iv Contrast(Rout) (01/11/18 21:52) Iv Access Insert/Monitor (01/11/18 21:52) Ecg Monitoring (01/11/18 21:52) Oximetry (01/11/18 21:52) Drug Screen, Random Urine (01/11/18 21:52) Alcohol (Ethanol) (01/11/18 21:52) Naloxone Inj (Narcan Inj) (01/11/18 22:00) Cath For Specimen (01/11/18 22:01) CKMB (01/11/18 21:51) CKMB% (01/11/18 21:51) Labs Laboratory Tests Test 01/11/18 21:51 01/11/18 22:10 White Blood Count 4.9 TH/MM3 Red Blood Count 4.41 MIL/MM3 Hemoglobin 13.1 GM/DL Hematocrit 39.8 % Mean Corpuscular Volume 90.2 FL Mean Corpuscular Hemoglobin 29.6 PG Mean Corpuscular Hemoglobin Concent 32.8 % Red Cell Distribution Width 13.5 % Platelet Count 226 TH/MM3 Mean Platelet Volume 8.9 FL Neutrophils (%) (Auto) 45.7 % Lymphocytes (%) (Auto) 35.6 % Monocytes (%) (Auto) 15.8 % Eosinophils (%) (Auto) 2.2 % Basophils (%) (Auto) 0.7 % Neutrophils # (Auto) 2.2 TH/MM3 Lymphocytes # (Auto) 1.8 TH/MM3 Monocytes # (Auto) 0.8 TH/MM3 Eosinophils # (Auto) 0.1 TH/MM3 Basophils # (Auto) 0.0 TH/MM3 CBC Comment DIFF FINAL Differential Comment Prothrombin Time 11.1 SEC Prothromb Time International Ratio 1.1 RATIO Activated Partial Thromboplast Time 22.4 SEC Blood Urea Nitrogen 15 MG/DL Creatinine 0.76 MG/DL Random Glucose 87 MG/DL Total Protein 6.1 GM/DL Albumin 3.0 GM/DL Calcium Level 8.1 MG/DL Magnesium Level 2.2 MG/DL Alkaline Phosphatase 82 U/L Aspartate Amino Transf (AST/SGOT) 24 U/L Alanine Aminotransferase (ALT/SGPT) 27 U/L Total Bilirubin 0.3 MG/DL Sodium Level 141 MEQ/L Potassium Level 4.2 MEQ/L Chloride Level 105 MEQ/L Carbon Dioxide Level 28.5 MEQ/L Anion Gap 8 MEQ/L Estimat Glomerular Filtration Rate 97 ML/MIN Ammonia 11 MCMOL/L Total Creatine Kinase 103 U/L Creatine Kinase MB 2.2 NG/ML Troponin I LESS THAN 0.02 NG/ML B-Type Natriuretic Peptide 30 PG/ML Lipase 132 U/L Thyroid Stimulating Hormone 3rd Gen 3.050 uIU/ML Valproic Acid (Depakene) Level 56 MCG/ML Ethyl Alcohol Level LESS THAN 3 MG/DL Urine Color LIGHT-YELLOW Urine Turbidity CLEAR Urine pH 6.5 Urine Specific [place] 1.005 Urine Protein NEG mg/dL Urine Glucose (UA) NEG mg/dL Urine Ketones NEG mg/dL Urine Occult Blood NEG Urine Nitrite NEG Urine Bilirubin NEG Urine Urobilinogen LESS THAN 2.0 MG/DL Urine Leukocyte Esterase NEG Microscopic Urinalysis Comment CULT NOT INDICATED Urine Opiates Screen NEG Urine Barbiturates Screen NEG Urine Amphetamines Screen NEG Urine Benzodiazepines Screen NEG Urine Cocaine Screen NEG Urine Cannabinoids Screen NEG MDM Medical Decision Making Medical Screen Exam Complete: Yes Emergency Medical Condition: Yes Medical Record Reviewed: Yes Differential Diagnosis Hepatic encephalopathy, versus sepsis related encephalopathy, versus urinary tract infection, versus intracranial abnormality Narrative Course During the course of the patient's emergency department visit, the patient's history, examination, and differential diagnosis were reviewed with the patient. The patient was placed on a personnel monitor with oximetry and frequent blood pressure monitoring. The patient had IV access obtained and blood work sent for analysis. The patient had an EKG done on arrival. The patient's EKG reveals a sinus rhythm heart rate of 84, QRS duration 87 ms, QTC [address] segment elevation is noted. Initially, it was written for the patient to obtain Narcan, however the patient spontaneously had resolution of his altered mentation. The patient was awake, alert, cooperative. I went in to reexamine the patient and the patient denies having any acute complaints. The patient's laboratory studies were reviewed and remarkable for a white count of 4.9, hemoglobin 13.1, platelets 226 with 15.8 monocytes, CMP is remarkable for a calcium of 8.1, magnesium 2.2, cardiac enzymes within normal limits, BNP 30, lipase 132, TSH 3.05, PT 11.1, PTT 22.4. Urine drug screen is negative, valproic acid is 56, alcohol level less than 3, urinalysis within normal limits Radiology studies were reviewed and remarkable for a chest x-ray shows no acute abnormality. CT scan of the brain shows senescent changes with mild periventricular ischemic white matter demyelinization, left maxillary sinus mucosal disease. No acute intracranial abnormality. Given the patient's rapid change in mental status without any treatment with medication, I suspect that this is related to his baseline psychiatric disorder. The laboratory studies and imaging studies have identified no other acute abnormality. The patient is resting comfortably and feels better, is alert and in no distress. The patient's results and examination findings were discussed with the patient. The repeat examination is unremarkable and benign. The history, exam, diagnostic testing, and current condition do not suggest any significant pathology to warrant further testing, continued ED treatment, admission, or surgical evaluation at this point. The vital signs have been stable. The patient does not have uncontrollable pain, intractable vomiting, or other significant symptoms. The patient's condition is stable and appropriate for discharge. The patient will pursue further outpatient evaluation with a primary care physician or other designated or consulting physician as indicated in the discharge instructions. The patient is instructed to report back to the emergency department immediately for reexamination in the mean time if he/ she develops any new or worsening signs or symptoms. The patient expressed understanding and was agreeable with this plan. Diagnosis Primary Impression: Altered mental status Qualified Codes: R41.82 - Altered mental status, unspecified Referrals: Primary Care Physician 2 days Patient Instructions: Altered Mental Status (ED), General Instructions Med/Other Pt SpecificInfo: No Change to Meds Disposition: 03 DISCHARGE TO SNF Condition: Stable Treasure Vera MD January 11, 2018 21:59
[2018-01-11] MEDS ORDERED: NALOXONE HCL 0.4 MG/ML AMP IV PUSH ONE (22:00)
[2018-01-11 22:17] LABS: AUTOMATED NEUTROPHIL # 2.2 TH/MM3 (1.8-7.7); BASOPHIL % 0.7 % (0.0-2.0); EOSINOPHIL # 0.1 TH/MM3 (0-0.4); EOSINOPHIL % 2.2 % (0.0-4.0); HEMATOCRIT 39.8 % (39.0-51.0); HEMOGLOBIN 13.1 GM/DL (13.0-17.0); LYMPH % 35.6 % (9.0-44.0); LYMPHOCYTE # 1.8 TH/MM3 (1.0-4.8); MEAN CELL VOLUME 90.2 FL (80.0-100.0); MEAN CORPUSCULAR HEMOGLOBIN 29.6 PG (27.0-34.0); MEAN CORPUSCULAR HGB CONC 32.8 % (32.0-36.0); MEAN PLATELET VOLUME 8.9 FL (7.0-11.0); MONO % 15.8 % (0.0-8.0); MONOCYTE # 0.8 TH/MM3 (0-0.9); NEUT % 45.7 % (16.0-70.0); PLATELET COUNT 226 TH/MM3 (150-450); RED BLOOD COUNT 4.41 MIL/MM3 (4.50-5.90); RED CELL DISTRIBUTION WIDTH 13.5 % (11.6-17.2); WHITE BLOOD COUNT 4.9 TH/MM3 (4.0-11.0)
--- NOTE | 2018-01-11 22:18 | RADRPT ---
EXAM DATE/TIME: 01/11/2018 21:59 [facility] COMPARISON: CHEST SINGLE AP, December 20, 2017, 0:45. INDICATIONS : Short of breath. MEDICAL HISTORY : None. SURGICAL HISTORY : None. ENCOUNTER: Initial ACUITY: 1 day PAIN SCORE: 0/10 LOCATION: Bilateral chest FINDINGS: No new focal pleural or parenchymal opacities. Cardiomediastinal contours are stable. Bony thorax is intact. CONCLUSION: 1. No acute abnormality or significant interval change. Andreas Sharpe MD on January 11, 2018 at 22:15 Board Certified Radiologist. This report was verified electronically.
[2018-01-11 22:26] LABS: BILIRUBIN, URINE NEG (NEG); BLOOD, URINE NEG (NEG); GLUCOSE,URINE NEG (NEG); KETONE, URINE NEG (NEG); NITRITE,URINE NEG (NEG); PH, URINE 6.5 (5.0-8.5); URINE COLOR LIGHT-YELLOW (YELLW/STRAW); URINE LEUKOCYTE ESTERASE NEG (NEG)
[2018-01-11 22:29] LABS: INTERNATIONAL NORMALIZED RATIO 1.1 RATIO; PROTHROMBIN TIME - PATIENT 11.1 SEC (9.8-11.6)
[2018-01-11 22:35] LABS: ALT (GPT) 27 U/L (12-78)
[2018-01-11 22:36] LABS: AST (GOT) 24 U/L (15-37); BICARBONATE 28.5 MEQ/L (21.0-32.0); BLOOD UREA NITROGEN 15 MG/DL (7-18); CALCIUM 8.1 MG/DL (8.5-10.1); CHLORIDE 105 MEQ/L (98-107); CREATININE 0.76 MG/DL (0.60-1.30); GLOMERULAR FILTRATION RATE 97 ML/MIN (>89); GLUCOSE,RANDOM 87 MG/DL (74-106); MAGNESIUM 2.2 MG/DL (1.5-2.5); SODIUM (NA) 141 MEQ/L (136-145)
[2018-01-11 22:48] LABS: ALKALINE PHOSPHATASE 82 U/L (45-117); TOTAL BILIRUBIN ADULT 0.3 MG/DL (0.2-1.0); TOTAL PROTEIN 6.1 GM/DL (6.4-8.2); TROPONIN I LESS THAN 0.02 NG/ML (0.02-0.05)
--- NOTE | 2018-01-11 22:58 | RADRPT ---
EXAM DATE/TIME: 01/11/2018 22:33 [facility] COMPARISON: CT BRAIN W/O CONTRAST, December 20, 2017, 0:58. INDICATIONS : Altered mental status. RADIATION DOSE: 56.35 CTDIvol (mGy) MEDICAL HISTORY : Cardiovascular disease. Cerebrovascular disease. Hypertension.Pancreatitis, Diabetes, Dementia SURGICAL HISTORY : None. ENCOUNTER: Initial ACUITY: 1 day PAIN SCALE: Non-responsive LOCATION: cranial TECHNIQUE: Multiple contiguous axial images were obtained of the head. Using automated exposure control and adj ustment of the mA and/or kV according to patient size, radiation dose was kept as low as reasonably a chievable to obtain optimal diagnostic quality images. DICOM format image data is available electro nically for review and comparison. FINDINGS: CEREBRUM: Moderate diffuse cerebral volume loss. Mild periventricular white matter hypodensities. The ventricle s are normal for degree of atrophy and stable from prior exam. No evidence of midline shift, mass le litzy, hemorrhage or acute infarction. No extra-axial fluid collections are seen. POSTERIOR FOSSA: The cerebellum and brainstem are intact. The 4th ventricle is midline. The cerebellopontine angle i s unremarkable. EXTRACRANIAL: The visualized portion of the orbits is intact. Mucoperiosteal thickening in the left maxillary sinus . SKULL: The calvaria is intact. No evidence of skull fracture. CONCLUSION: 1. Senescent changes with mild periventricular ischemic white matter demyelination. 2. Left maxillary sinus mucosal disease. 3. No acute intracranial abnormality. Andreas Sharpe MD on January 11, 2018 at 22:54 Board Certified Radiologist. This report was verified electronically.
[2018-01-12 01:21] VITALS: BP 151/72; PULSE 80; RESP 18; O2SAT 99
--- NOTE | 2018-01-12 08:05 | EKG ---
Date Performed: 01/11/2018 Time Performed: 21:52:09 PTAGE: 87 years EKG: Sinus rhythm POSSIBLE LEFT ANTERIOR FASCICULAR BLOCK ABNORMAL ECG NO PREVIOUS TRACING DOCTOR: Krunal Dye Interpretating Date/Time 01/12/2018 08:04:32
== END 2018-01-12 01:22 ==
LOC: NEPE 21:36
DX: R41.82 Altered mental status, unspecified (principal); R94.31 Abnormal electrocardiogram [ECG] [EKG]; F31.9 Bipolar disorder, unspecified; I25.10 Atherosclerotic heart disease of native coronary artery without angina pectoris; E11.9 Type 2 diabetes mellitus without complications; I10 Essential (primary) hypertension; E78.5 Hyperlipidemia, unspecified; F03.90 Unspecified dementia, unspecified severity, without behavioral disturbance, psychotic disturbance, mood disturbance, and anxiety; F41.9 Anxiety disorder, unspecified; E83.51 Hypocalcemia; Z79.899 Other long term (current) drug therapy; Z79.82 Long term (current) use of aspirin
CPT/HCPCS: 70450; 71045; 80053; 80164; 80307; 81001; 82140; 82550; 82552; 83690; 83735; 83880; 84443; 84484; 85025; 85610; 85730; 93005; 99285; P9612

== ENCOUNTER 2018-04-21 03:40 | Inpatient (IN) ==
--- NOTE | 2018-04-21 04:19 | ED ---
HPI General Chief Complaint: Altered Mental Status Stated Complaint: mental status Time Seen by Provider: 04/21/18 04:55 History of Present Illness HPI narrative: This is a 88-year-old male with a history of dementia, who presents via EMS from an assisted living facility for reported increased agitation and altered mental status. According to the paramedics, the patient was acting aggressive towards the nursing staff at the [facility]. They report that he was threatening them with a cane. The patient is awake and appropriately demented and can give no further history. He denies any pain. He is not febrile. There are no other complaints. Related Data Home Medications Medication Instructions Recorded Confirmed aspirin 162 mg PO DAILY 04/21/18 04/21/18 divalproex 250 mg PO BID 04/21/18 04/21/18 pravastatin 40 mg PO DAILY 04/21/18 04/21/18 quetiapine 200 mg PO DAILY 04/21/18 04/21/18 quetiapine 400 mg PO HS 04/21/18 04/21/18 trazodone 50 mg PO HS 04/21/18 04/21/18 Allergies Allergy/AdvReac Type Severity Reaction Status Date / Time codeine Allergy Intermediate Agitation Verified 04/21/18 04:04 oxycodone Allergy Unknown Agitation Verified 04/21/18 04:04 Review of Systems ROS Unobtainable ROS Unobtainable: unobtainable due to mental condition (Dementia.) PMFSH Medical History Medical History Anxiety (Acute) Bipolar 1 disorder (Acute) CVD (cardiovascular disease) (Acute) Diabetes (Acute) Hyperlipemia (Acute) Social History Social History Substance History: Past History Smoking Status: Unknown if ever smoked How Often Do You Have a Drink Containing Alcohol: Never Recent Travel in [facility] within the Last 8 Weeks: No Recent Out of Country Travel within the Last 8 Weeks: No Immunization History Tetanus Immunization: Unable to Assess Hx Influenza Vaccine This Season: Yes Exam Narrative Exam Narrative: GENERAL: Well-developed well-nourished male in no acute respiratory distress. SKIN: Focused skin assessment warm/dry. HEAD: Atraumatic. Normocephalic. EYES: Pupils equal and round. No scleral icterus. No injection or drainage. ENT: No nasal bleeding or discharge. Mucous membranes pink and moist. NECK: Trachea midline. Supple. CARDIOVASCULAR: Regular rate and rhythm. Rate was in the 90s initially, it is in the 80s now. No murmur appreciated. RESPIRATORY: No accessory muscle use. Clear to auscultation. Breath sounds equal bilaterally. GASTROINTESTINAL: Abdomen soft, non-tender, nondistended. Hepatic and splenic margins not palpable. MUSCULOSKELETAL: No obvious deformities. No clubbing. No cyanosis. No edema. NEUROLOGICAL: Awake and confused which would be consistent with his dementia history. No obvious cranial nerve deficits. Motor grossly within normal limits. Normal speech. PSYCHIATRIC: Confused but not agitated. Course Initial Documented Vital Signs Temperature 98.5 F 04/21/18 03:56 Pulse Rate 98 H 04/21/18 03:56 Respiratory Rate 16 04/21/18 03:56 Blood Pressure 109/65 04/21/18 03:56 Pulse Oximetry 96 04/21/18 03:56 Last Documented Vital Signs Temperature 97.4 F L 04/23/18 06:05 Pulse Rate 79 04/23/18 06:05 Respiratory Rate 17 04/23/18 06:05 Blood Pressure 136/70 04/23/18 06:05 Pulse Oximetry 94 L 04/23/18 06:05 Sign Out Sign Out Data: Patient Sign Out occurred on 04/21/18 at 07:09. Patient's care was discussed, and care was transferred from Damian Bowen MD to Daniel Shelley MD. Sign Out Comment: 88-year-old male with a history of dementia who presents from the [facility] after he was apparently agitated and aggressive towards the [employer] staff member. The patient is awake and demented. He was unable to tell me what happened. He does not know why he is here. Patient's CT scan and basic labs are within normal limits. Urinalysis is pending at this time. I will asked the physician coming on for me to check it. I anticipate he will be going back to the [facility] without any issues. Last updated by Damian Bowen MD at 04/21/18 06:51 Post-Handoff Eval: The patient was signed out at 7 AM with UA pending. UA is unremarkable. 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 The patient was going to be transferred back to the [facility], however, the daughter called and stated that the patient has had increasing delirium with psychosis and agitation at night with previous admission for similar symptoms. The patient did have his Seroquel increased at that time. The daughter's request and reevaluation by psychiatry as the patient has had increasing agitation and violence toward staff members at the custodial. Therefore, psychiatric evaluation was ordered. Medical Decision Making MDM Narrative Medical decision making narrative: 88-year-old male presents from the custodial with agitation and dementia. The patient reportedly was aggressive towards 1 of the [employer]'s and threatening them with his cane. The patient is awake alert appropriate here. He was not agitated or violent. Lab tests excluding urinalysis were all within normal limits. CT brain showed no evidence of acute process. The patient will be signed out to the physician replaced me at change of shift. Disposition will be per pending the urinalysis. Medical Screen Exam Complete: Yes Emergency Medical Condition: Yes Differential Diagnosis Differential Diagnosis: UTI versus pneumonia versus metabolic derangement Lab Data Lab results reviewed: Yes I reviewed the patient's lab results. Lab results narrative: Laboratory evaluation is unremarkable Result diagrams: 04/21/18 04:05 04/22/18 07:52 Lab Results 04/21/18 04/21/18 04/21/18 Range/Units 04:05 04:05 06:21 WBC 4.3 (4.0-11.0) th/mm3 RBC 4.09 L (4.50-5.90) mil/mm3 Hgb 13.0 (13.0-17.0) gm/dL Hct 38.1 L (39.0-51.0) % MCV 93.0 (80.0-100.0) fL MCH 31.7 (27.0-34.0) pg MCHC 34.0 (32.0-36.0) % RDW 13.7 (11.6-17.2) % Plt Count 217 (150-450) th/mm3 MPV 8.6 (7.0-11.0) fL Neut % (Auto) 42.8 (16.0-70.0) % Lymph % (Auto) 35.1 (9.0-44.0) % [place] % (Auto) 19.0 H (0.0-8.0) % Eos % (Auto) 2.7 (0.0-4.0) % Baso % (Auto) 0.4 (0.0-2.0) % Neut # (Auto) 1.8 (1.8-7.7) th/mm3 Lymph # (Auto) 1.5 (1.0-4.8) th/mm3 [place] # (Auto) 0.8 (0.0-0.9) th/mm3 Eos # (Auto) 0.1 (0.0-0.4) th/mm3 Baso # (Auto) 0.0 (0.0-0.2) th/mm3 WBC Differential . Differential Comment Auto diff final Sodium 145 (136-145) meq/L Potassium 3.5 (3.5-5.1) meq/L Chloride 107 (98-107) meq/L Carbon Dioxide 28.0 (21.0-32.0) meq/L Anion Gap 10 (5-15) meq/L BUN 15 (7-18) mg/dL Creatinine 0.77 (0.60-1.30) mg/dL Estimated GFR Greater than 89 (>89) mL/min Random Glucose 95 (74-106) mg/dL Hemoglobin A1c (4.3-6.0) % Calcium 8.1 L (8.5-10.1) mg/dL Total Bilirubin 0.3 (0.2-1.0) mg/dL AST 18 (15-37) U/L ALT 21 (12-78) U/L Alkaline Phosphatase 63 (45-117) U/L Troponin I Less than 0.02 L (0.02-0.05) ng/mL Total Protein 6.4 (6.4-8.2) g/dL Albumin 3.1 L (3.4-5.0) g/dL Triglycerides (42-150) mg/dL Cholesterol (120-200) mg/dL LDL Cholesterol, Calc (0-99) mg/dL HDL Cholesterol (40.0-60.0) mg/dL Cholesterol/HDL Ratio Ratio TSH 2.620 (0.358-3.740) uIU/mL Urine Color Yellow (Yellw/Straw) Urine Clarity Clear (Clear) Urine pH 5.0 (5.0-8.5) Ur Specific [place] 1.015 (1.002-1.035) Urine Protein Negative (Neg-Trace) mg/dL Urine Glucose (UA) Negative (Negative) mg/dL Urine Ketones Trace (Negative) mg/dL Urine Occult Blood Negative (Negative) Urine Nitrate Negative (Negative) Urine Bilirubin Negative (Negative) Urine Urobilinogen Less than 2 (Less than 2) mg/dL Ur Leukocyte Esterase Negative (Negative) Urine WBC Less than 1 (0-5) /hpf Urine Mucus Few H (Occasional) /lpf Micro UA Comment Culture not ind Ur Microscopic Review Not Reportable Urine Culture Comments Culture not ind 04/22/18 04/22/18 Range/Units 07:52 07:52 WBC (4.0-11.0) th/mm3 RBC (4.50-5.90) mil/mm3 Hgb (13.0-17.0) gm/dL Hct (39.0-51.0) % MCV (80.0-100.0) fL MCH (27.0-34.0) pg MCHC (32.0-36.0) % RDW (11.6-17.2) % Plt Count (150-450) th/mm3 MPV (7.0-11.0) fL Neut % (Auto) (16.0-70.0) % Lymph % (Auto) (9.0-44.0) % [place] % (Auto) (0.0-8.0) % Eos % (Auto) (0.0-4.0) % Baso % (Auto) (0.0-2.0) % Neut # (Auto) (1.8-7.7) th/mm3 Lymph # (Auto) (1.0-4.8) th/mm3 [place] # (Auto) (0.0-0.9) th/mm3 Eos # (Auto) (0.0-0.4) th/mm3 Baso # (Auto) (0.0-0.2) th/mm3 WBC Differential Differential Comment Sodium 142 (136-145) meq/L Potassium 3.8 (3.5-5.1) meq/L Chloride 106 (98-107) meq/L Carbon Dioxide 27.2 (21.0-32.0) meq/L Anion Gap 9 (5-15) meq/L BUN 10 (7-18) mg/dL Creatinine 0.80 (0.60-1.30) mg/dL Estimated GFR Greater than 89 (>89) mL/min Random Glucose 87 (74-106) mg/dL Hemoglobin A1c 5.9 (4.3-6.0) % Calcium 8.5 (8.5-10.1) mg/dL Total Bilirubin (0.2-1.0) mg/dL AST (15-37) U/L ALT (12-78) U/L Alkaline Phosphatase (45-117) U/L Troponin I (0.02-0.05) ng/mL Total Protein (6.4-8.2) g/dL Albumin (3.4-5.0) g/dL Triglycerides 60 (42-150) mg/dL Cholesterol 174 (120-200) mg/dL LDL Cholesterol, Calc 87 (0-99) mg/dL HDL Cholesterol 75.2 H (40.0-60.0) mg/dL Cholesterol/HDL Ratio 2.31 Ratio TSH (0.358-3.740) uIU/mL Urine Color (Yellw/Straw) Urine Clarity (Clear) Urine pH (5.0-8.5) Ur Specific [place] (1.002-1.035) Urine Protein (Neg-Trace) mg/dL Urine Glucose (UA) (Negative) mg/dL Urine Ketones (Negative) mg/dL Urine Occult Blood (Negative) Urine Nitrate (Negative) Urine Bilirubin (Negative) Urine Urobilinogen (Less than 2) mg/dL Ur Leukocyte Esterase (Negative) Urine WBC (0-5) /hpf Urine Mucus (Occasional) /lpf Micro UA Comment Ur Microscopic Review Urine Culture Comments Imaging Data Radiologist's impression: Chest X-Ray 04/21/18 03:52 CONCLUSION: Trace bibasilar atelectasis. Head CT 04/21/18 03:52 CONCLUSION: 1. No acute intracranial abnormality. 2. Chronic white matter changes. 3. Worsening chronic left maxillary sinus disease. . Discharge Plan Discharge Disposition Patient Disposition: 30 Still Patient Discharge Condition Condition: Stable Discharge Details Diagnosis: Delirium, Agitation Physicians Team ED Provider: Daniel Shelley Primary Care Provider: Chao Colmenares Attending Provider: Deion Guillermo Status ED Status: Left Department Discharge Information Discharge Date/Time: 04/21/18 14:33
[2018-04-21 04:28] LABS: Baso % (Auto) 0.4 % (0.0-2.0); Eos # (Auto) 0.1 th/mm3 (0.0-0.4); Eos % (Auto) 2.7 % (0.0-4.0); Hematocrit 38.1 % (39.0-51.0); Lymph # (Auto) 1.5 th/mm3 (1.0-4.8); Lymph % (Auto) 35.1 % (9.0-44.0); Mean Corpuscular Hemoglobin 31.7 pg (27.0-34.0); Mean Platelet Volume 8.6 fL (7.0-11.0); Mono # (Auto) 0.8 th/mm3 (0.0-0.9); Neut # (Auto) 1.8 th/mm3 (1.8-7.7); Neut % (Auto) 42.8 % (16.0-70.0); Platelet Count 217 th/mm3 (150-450); Red Blood Count 4.09 mil/mm3 (4.50-5.90); Red Cell Distribution Width 13.7 % (11.6-17.2); White Blood Count 4.3 th/mm3 (4.0-11.0)
--- NOTE | 2018-04-21 04:47 | XR ---
EXAM DATE: 04/21/2018 4:41 AM EDT AGE/SEX: 88 years / Male INDICATIONS: Shortness of breath. Confusion CLINICAL DATA: This is the patient's initial encounter. Patient reports that signs and symptoms have been present for 1 day and indicates a pain score of 0/10. MEDICAL/SURGICAL HISTORY: None. . Lung surgery COMPARISON: [facility] – [place]ST SINGLE AP, 01/11/2018. . FINDINGS: There is mild atelectasis of both bases. No pleural effusion or pneumothorax demonstrated. Heart size stable, within normal limits. CONCLUSION: Trace bibasilar atelectasis. Electronically signed by: Deion Perez MD 04/21/2018 4:46 AM EDT
[2018-04-21 04:48] LABS: Alanine Aminotransferase 21 U/L (12-78); Albumin 3.1 g/dL (3.4-5.0); Anion Gap 10 meq/L (5-15); Aspartate Aminotransferase 18 U/L (15-37); Blood Urea Nitrogen 15 mg/dL (7-18); Calcium 8.1 mg/dL (8.5-10.1); Chloride 107 meq/L (98-107); Glomerular Filtration Rate Greater Than 89 mL/min (>89); Glucose,Random 95 mg/dL (74-106); Potassium 3.5 meq/L (3.5-5.1); Sodium 145 meq/L (136-145)
--- NOTE | 2018-04-21 04:56 | CT ---
EXAM DATE: 04/21/2018 4:45 AM EDT AGE/SEX: 88 years / Male INDICATIONS: Altered mental status; patient is confused. CLINICAL DATA: This is the patient's initial encounter. Patient reports that signs and symptoms have been present for 1 day and indicates a pain score of 0/10. MEDICAL/SURGICAL HISTORY: Dementia. Cardiovascular disease. Diabetes. None. RADIATION DOSE: 56.35 CTDI (mGy) COMPARISON: [facility] – [place], [place] BRAIN W/O CONTRAST, 01/11/2018. . TECHNIQUE: CT of the head without contrast. Using automated exposure control and adjustment of the mA and/or kV according to patient size, radiation dose was kept as low as reasonably achievable to ob tain optimal diagnostic quality images. DICOM format image data is available electronically for revi ew and comparison. FINDINGS: Cerebrum: The ventricles are normal for age. No evidence of midline shift, mass lesion, hemorrhage or acute infarction. No extraaxial fluid collections are seen. Chronic low-attenuation again seen in the periventricular white matter. Posterior Fossa: The cerebellum and brainstem are intact. The 4th ventricle is midline. The cerebe llopontine angle is unremarkable. Extracranial: Circumferential mucoperiosteal thickening seen of the left maxillary air cell, not new but increased. Skull: The calvaria is intact. No evidence of skull fracture. CONCLUSION: 1. No acute intracranial abnormality. 2. Chronic white matter changes. 3. Worsening chronic left maxillary sinus disease. . Electronically signed by: Deion Perez MD 04/21/2018 4:55 AM EDT
[2018-04-21 04:58] LABS: Alkaline Phosphatase 63 U/L (45-117); Total Protein 6.4 g/dL (6.4-8.2)
[2018-04-21] MEDS ORDERED: Sodium Chlor 0.9% Inj 500 ML IV.SIG SCH (06:00)
[2018-04-21 07:00] LABS: Bilirubin,Urine Negative (Negative); Clarity,Urine Clear (Clear); Color,Urine Yellow (Yellw/Straw); Glucose,Urine (UA) Negative (Negative); Leukocyte Esterase,Urine Negative (Negative); Mucus,Urine Few /lpf (Occasional); Nitrite,Urine Negative (Negative); Specific Gravity,Urine 1.015 (1.002-1.035)
[2018-04-21] MEDS ORDERED: Aluminum/Magnesium/Simethacone Susp 30 ML UDC PO PRN (13:51)
[2018-04-21] MEDS ORDERED: Bisacodyl 10 MG Supp RECTAL PRN (13:51)
--- NOTE | 2018-04-21 16:29 | ECG ---
Date Performed: 04/21/2018 Time Performed: 04:54:25 PTAGE: 88 years EKG: Sinus rhythm WITH OCCASIONAL SUPRAVENTRICULAR PREMATURE COMPLEXES PATTERN CONSISTENT WITH PULMONARY DISEASE LEFT ANTERIOR FASCICULAR BLOCK Since the previous tracing, no significant change noted ABNORMAL ECG NO PREVIOUS TRACING DOCTOR: Linwood Oseguera Interpretating Date/Time 04/21/2018 16:23:49
[2018-04-21] MEDS: Senna/Docusate Sodium 8.6/50 MG Tablet PO SCH (23:14)
[2018-04-22] MEDS ORDERED: Haloperidol Inj 5 MG/ML Ampul IM ONE (02:00)
[2018-04-22] MEDS: Senna/Docusate Sodium 8.6/50 MG Tablet PO SCH (08:22)
[2018-04-22 09:26] LABS: Anion Gap 9 meq/L (5-15); Blood Urea Nitrogen 10 mg/dL (7-18); Calcium 8.5 mg/dL (8.5-10.1); Carbon Dioxide 27.2 meq/L (21.0-32.0); Chloride 106 meq/L (98-107); Cholesterol 174 mg/dL (120-200); Glomerular Filtration Rate Greater Than 89 mL/min (>89); Glucose,Random 87 mg/dL (74-106); Potassium 3.8 meq/L (3.5-5.1); Sodium 142 meq/L (136-145)
[2018-04-22 09:36] LABS: Chol/HDL Ratio 2.31 Ratio; HDL Cholesterol 75.2 mg/dL (40.0-60.0); LDL Cholesterol,Calculated 87 mg/dL (0-99); Triglycerides 60 mg/dL (42-150)
[2018-04-22] MEDS ORDERED: Acetaminophen 325 MG Tablet PO PRN (11:00)
[2018-04-22] MEDS ORDERED: Aluminum/Magnesium/Simethacone Susp 30 ML UDC PO PRN (11:00)
--- NOTE | 2018-04-22 11:12 | P.HPPSY ---
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 Express and informed consent means consent voluntarily given in writing, by a competent person, after sufficient explanation and disclosure of the subject matter involved to enable the person to make a knowing and willful decision without any element of force, fraud, deceit, duress, or other form of constraint or coercion. This person is 18 years of age or older, is not now known to be incompetent to consent to treatment with a guardian advocate, and does not have a health care surrogate or proxy currently making medical treatment decisions. I have found this person to be one of the following: [] Competent to provide express and informed consent, as defined above, for voluntary admission to this facility and is competent to provide express and informed consent for treatment. He/she has the consistent capacity to make well reasoned, willful, and knowing decisions concerning his or her medical or mental health treatment. The person fully and consistently understands the purpose of the admission for examination/placement and is fully capable of personally exercising all rights assured under [place]xxx] Incompetent to provide express and informed consent to voluntary admission , and this is incompetent to provide express and informed consent to treatment. The person must be transferred to involuntary status and a petition for a guardian advocate filed with the Circuit Court. [] Refusing to provide express and informed consent to voluntary admission but is competent to provide express and informed consent for treatment. The person must be discharged or transferred to involuntary status. Form shall be completed within 24 hours of a person's arrival at the receiving facility and filed in the clinical record of each person: 1. Admitted on a voluntary basis 2. Permitted to provide express and informed consent to his/her own treatment 3. Allowed to transfer from involuntary to voluntary status 4. Prior to permitting a person to consent to his or her own treatment after having been previously found incompetent to consent to treatment. History of Present Illness Capacity: Lacks capacity History of Present Illness: Patient is an 88-year-old white male who comes here from [facility] with history of dementia and increased aggression at that facility. Of interest his who is severely demented is also at that facility and he continues to attempt to give her the care that he gave her years ago. However it appears his stepdaughter who is his POA is at the facility and came with the patient and she signed him in on a voluntary basis. It is my opinion that this is really not appropriate with an adult. Thus I will initiate a Cedeno act I will do first opinion petition supporting Cedeno act. I also feel patient does not have capacity thus I will ask for health care surrogate and guardian advocate. I did discuss all of this with the patient's stepdaughter Sugar Gilliland at [phone] she is willing to be healthcare surrogate permission of her psychotropic medications man has been on in the past. He does have a history of bipolar disorder and this had multiple prior visits to us. I cared for him in 2004 related to his mental illness. At the present time patient sitting is somewhat distraught manner in his room nurse Dayana present throughout the session. Patient is very hard of hearing she is causing increased frustration with him so is diffusely confused and place time and situation. He knows his is quite sick but is somewhat confused about how he can try to help her he is somewhat confused about his behaviors at [facility]. He does deny suicidality he does deny voices or visions. The times he appears to be somewhat distractible and responding to internal stimuli. Patient's stepdaughter states she has had some increased difficulties with his sleep patterns. And aggressiveness. Patient denies any family history of mental health issues. He is vague about past alcohol abuse on his part. Denies other drug use. At this time patient does meet criteria for acute inpatient psychiatric hospitalization. I feel he does not have capacity to sign on a voluntary basis thus I will initiate a Cedeno act and do petition for health care surrogate and guardian advocate as mentioned above. Daughter states patient is otherwise healthy has no other significant medical issues. We will continue his Depakote Seroquel and trazodone though we will adjust the Seroquel to smaller doses during the day and a little larger dose at bedtime. We will check Depakote blood level also. Hopeless be fairly short stay we may need to discuss alternative placements for this gentleman perhaps through [facility]. - Inpatient Certification I certify that the inpatient services were ordered in accordance with Medicare regulations governing the order. This includes certification that hospital inpatient services are reasonable and necessary and in the case of services not specified as inpatient-only under 42 CFR 419.22(n), that they are appropriately provided as inpatient services in accordance to with the 2-midnight benchmark under 43 CFR 412.3(e) I certify that inpatient psychiatric hospital services are medically necessary. Evaluation and treatment and/or diagnostic testing are expected to improve the patient's condition. The patient needs on a daily basis, active treatment furnished directly by or requiring the supervision of inpatient psychiatric facility personnel. Estimated Total Length of Stay (Days): 8 Plans for Post Hospital Care: SNF Review of Systems All other systems reviewed negative except as stated in HPI [facility] - History History Provided By: Family Member (Patient's stepdaughter Olga Gilliland), Medical Record, Adjunct Phlebotomy Instructor / EMT - Medical History Medical History: Medical History (Last Updated 04/21/18 @ 04:03 by Ramona Yap RN) Anxiety Bipolar 1 disorder CVD (cardiovascular disease) Diabetes Hyperlipemia - Tobacco History Smoking Status: Unknown if ever smoked - Alcohol History How Often Do You Have a Drink Containing Alcohol: Never - Substance Use History Substance History: Past History - Substance Use Type Alcohol Status: Sustained Remission Route Used: By Mouth Frequency: "heavy drinker" per family Last Used: 15 + years - Travel History Recent Travel in the [place] Within the Last 8 Weeks: No Recent Travel Out of the Country Within the Last 8 Weeks: No - Immunization History Tetanus Immunization: Unable to Assess Hx Influenza Vaccine This Season: Yes Quality Measures - Psychiatric History Psychological trauma history: Patient denies Violence risk to others in the last 6 months: Patient aggressive staff at [facility] Violence risk to self in the last 6 months: Denies - Substance Abuse History Drug or alcohol use in the past 12 months: Denies - Patient Strengths Patient's strengths (minimum of 2): Patient verbal able access healthcare has supportive family Medications and Allergies Active Medications: Active Medications Acetaminophen (Tylenol) 650 mg PO Q4H PRN PRN Reason: Pain 1-5 or Temp >101F Al Hydrox/Mg Hydrox/Simethicone (Mag-Al Plus Susp Liq) 30 ml PO Q6H PRN PRN Reason: DYSPEPSIA Al Hydrox/Mg Hydrox/Simethicone (Mag-Al Plus Susp Liq) 30 ml PO Q6H PRN PRN Reason: DYSPEPSIA Al Hydroxide/Mg Hydroxide (Milk Of Magnesia Liq) 30 ml PO Q12H PRN PRN Reason: Mild Constipation Aspirin (Aspirin Chew) 162 mg PO DAILY [facility] Diphenhydramine HCl (Benadryl) 50 mg PO HS PRN PRN Reason: INSOMNIA Divalproex Sodium (Depakote Dr) 250 mg PO BID [facility] Hydroxyzine HCl (Atarax) 50 mg PO Q6H PRN PRN Reason: ANXIETY Sodium Chloride (Ns Inj) 500 mls @ 0 mls/hr IV.SIG BOLUS OBDULIO Last Admin: 04/21/18 05:44 Dose: 500 mls/hr Non-Formulary Medication (Quetiapine [Quetiapine]) 400 mg PO HS [facility] Pravastatin Sodium (Pravachol) 40 mg PO DAILY [facility] Quetiapine Fumarate (Seroquel) 200 mg PO DAILY [facility] Sodium Chloride (Ns Flush) 2 ml IV.FLUSH PRN PRN PRN Reason: FLUSH AFTER USING IV ACCESS Trazodone HCl (Desyrel) 50 mg PO HS [facility] Allergies Allergy/AdvReac Type Severity Reaction Status Date / Time codeine Allergy Intermediate Agitation Verified 04/21/18 04:04 oxycodone Allergy Unknown Agitation Verified 04/21/18 04:04 Home Medications Medication Instructions Recorded Confirmed Type aspirin 162 mg PO DAILY 04/21/18 04/21/18 History divalproex 250 mg PO BID 04/21/18 04/21/18 History pravastatin 40 mg PO DAILY 04/21/18 04/21/18 History quetiapine 200 mg PO DAILY 04/21/18 04/21/18 History quetiapine 400 mg PO HS 04/21/18 04/21/18 History trazodone 50 mg PO HS 04/21/18 04/21/18 History Results - Labs CBC & Chem 7: 04/21/18 04:05 04/22/18 07:52 Labs: Laboratory Results - last 24 hr 04/22/18 07:52 Sodium 142 Potassium 3.8 Chloride 106 Carbon Dioxide 27.2 Anion Gap 9 BUN 10 Creatinine 0.80 Estimated GFR Greater than 89 Random Glucose 87 Calcium 8.5 Triglycerides 60 Cholesterol 174 LDL Cholesterol, Calc 87 HDL Cholesterol 75.2 H Cholesterol/HDL Ratio 2.31 Exam Vital signs: Vital Signs 04/21/18 15:11 04/22/18 05:46 04/22/18 09:08 Temperature 98.5 F 97.9 F Pulse Rate 74 79 Respiratory Rate 16 16 Blood Pressure 148/72 H 126/73 Pulse Oximetry 92 L 95 95 Intake & Output 04/21/18 04/22/18 04/22/18 18:59 06:59 18:59 Intake Total 240 / 240 0 / 0 240 / 240 Balance 240 / 240 0 / 0 240 / 240 Weight 82.8 kg Intake: Oral 240 / 240 0 / 0 240 / 240 Other: # Voids 1 Weight On Admission 82.8 kg Narrative: Patient seen in his room with nurse Dayana, patient in no physical distress, no complaints of respiratory difficulty no complaints of chest pain or abdominal pain. Patient moving all 4 extremities without difficulty Mental Status Examination Appearance: Appropriate Consciousness: Alert Orientation: Person Motor Activity: Normal gait Speech: Hesitant Language: Adequate Fund of Knowledge: Inadequate Attention and Concentration: Easily distracted Memory: Impaired Mood: Sad, Anxious Affect: Other (Increased range and intensity) Thought Process & Associations: Loose associations, Disorganized Thought Content: Other (Disorganized) Hallucination Type: None Delusion Type: None Suicidal Ideation: No Suicidal Plan: No Suicidal Intention: No Homicidal Ideation: No Homicidal Plan: No Homicidal Intention: No Insight: Poor Judgment: Poor Assessment and Plan - Assessment (1) Late onset Alzheimer's disease with behavioral disturbance Code(s): G30.1 - Alzheimer's disease with late onset; F02.81 - Dementia in other diseases classified elsewhere with behavioral disturbance Status: Acute - Plan Plan: Estimated LOS: [] days At this time patient meets criteria for involuntary psychiatric hospitalization I will initiate the Cedeno act. I will also do first opinion petition supporting Cedeno act request second opinion, I feel he does not have capacity I will ask for health care surrogate and guardian advocate. We will continue his medications per the EMR. We will have PT assess this gentleman also. Patient' s stepdaughter is willing to be healthcare surrogate/guardian advocate. Placement may become somewhat problematic Justification for Continued Inpatient Stay: At this time patient would decompensate a place to a lower level of care Discharge Planning: To be determined Request Healthcare Surrogate/Guardian Advocate?: Yes
[2018-04-22] MEDS: Divalproex 250 MG DR Tablet PO SCH ×2 (13:35→21:39)
[2018-04-22] MEDS: QUEtiapine 25 MG Tablet PO SCH ×2 (13:35→17:30)
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
[2018-04-22 17:17] LABS: Hemoglobin A1c 5.9 % (4.3-6.0)
[2018-04-22] MEDS ORDERED: QUETIAPINE 400 MG PO SCH (21:00)
[2018-04-22] MEDS: traZODone 50 MG Tablet PO SCH (21:40)
[2018-04-23] MEDS ORDERED: Haloperidol Inj 5 MG/ML Ampul IM ONE (00:45)
[2018-04-23] MEDS: Divalproex 250 MG DR Tablet PO SCH ×2 (11:22→21:36)
[2018-04-23] MEDS: QUEtiapine 25 MG Tablet PO SCH ×2 (11:23→18:20)
--- NOTE | 2018-04-23 13:30 | P.PNPSY ---
Subjective Remarks: Patient seen in his room. Patient resting in napping, chart review, patient compliant medications. Patient arousable continues with a marked difficulty hearing but he is pleasant with me continues diffusely confused. There is been no significant behavioral problems noted Review of Systems All other systems reviewed negative except as stated in HPI Mental Status Examination Appearance: Appropriate Consciousness: Alert Orientation: Person Motor Activity: Other (No motor abnormalities noted) Speech: Hesitant Language: Adequate Fund of Knowledge: Inadequate Attention and Concentration: Easily distracted Memory: Impaired Mood: Anxious Affect: Blunt Thought Process & Associations: Loose associations, Tangential (In setting of dementia) Thought Content: Other (Disorganized) Hallucination Type: None Delusion Type: None Suicidal Ideation: No Suicidal Plan: No Suicidal Intention: No Homicidal Ideation: No Homicidal Plan: No Homicidal Intention: No Insight: Poor Judgment: Poor Assessment and Plan - Assessment (1) Late onset Alzheimer's disease with behavioral disturbance Code(s): G30.1 - Alzheimer's disease with late onset; F02.81 - Dementia in other diseases classified elsewhere with behavioral disturbance Status: Acute - Plan Plan: Patient continues confused demented though calm with me and no behavior problems noted Justification for Continued Inpatient Stay: At this time patient would decompensate a place to a lower level of care Discharge Planning: To be determined Request Healthcare Surrogate/Guardian Advocate?: Yes
[2018-04-23] MEDS: traZODone 50 MG Tablet PO SCH (21:36)
[2018-04-24] MEDS: Divalproex 250 MG DR Tablet PO SCH ×2 (09:51→21:56)
[2018-04-24] MEDS: QUEtiapine 25 MG Tablet PO SCH ×2 (09:52→17:50)
--- NOTE | 2018-04-24 10:13 | P.PNPSY ---
Subjective Remarks: Patient seen in his room with nurse An, chart reviewed, patient trying mixed compliance medication, refusing his daytime schedule Seroquel. Patient did have some dyscontrol yesterday evening. This morning patient calm continues confused and disoriented low part of this might be related to his difficulty hearing. For now continue treatment Review of Systems All other systems reviewed negative except as stated in HPI Mental Status Examination Appearance: Appropriate Consciousness: Alert Orientation: Person Motor Activity: Other (No motor abnormalities noted) Speech: Hesitant Language: Adequate Fund of Knowledge: Inadequate Attention and Concentration: Easily distracted Memory: Impaired Mood: Anxious Affect: Blunt Thought Process & Associations: Loose associations, Tangential (In setting of dementia) Thought Content: Other (Disorganized) Hallucination Type: None Delusion Type: None Suicidal Ideation: No Suicidal Plan: No Suicidal Intention: No Homicidal Ideation: No Homicidal Plan: No Homicidal Intention: No Insight: Poor Judgment: Poor Assessment and Plan - Assessment (1) Late onset Alzheimer's disease with behavioral disturbance Code(s): G30.1 - Alzheimer's disease with late onset; F02.81 - Dementia in other diseases classified elsewhere with behavioral disturbance Status: Acute - Plan Plan: Patient remains diffusely confused demented with some sundowning noted for now continue treatment Justification for Continued Inpatient Stay: At this time patient would decompensate a place to a lower level of care Discharge Planning: To be determined Request Healthcare Surrogate/Guardian Advocate?: Yes
[2018-04-24] MEDS: traZODone 50 MG Tablet PO SCH (21:56)
[2018-04-25] MEDS: QUEtiapine 25 MG Tablet PO SCH ×2 (09:32→16:40)
[2018-04-25] MEDS: Divalproex 250 MG DR Tablet PO SCH ×2 (09:32→20:49)
--- NOTE | 2018-04-25 15:55 | P.PNPSY ---
Subjective Remarks: Patient was seen and case discussed with nursing. Patient is alert and oriented 1. He is hard of hearing limiting the interview. He is confused about his surroundings and his poor insight into his admission. He is behaving well on the unit and no aggressive episodes are noted today Mental Status Examination Appearance: Appropriate Consciousness: Alert Orientation: Person Motor Activity: Other (No motor abnormalities noted) Speech: Hesitant Language: Adequate Fund of Knowledge: Inadequate Attention and Concentration: Easily distracted Memory: Impaired Mood: Anxious Affect: Blunt Thought Process & Associations: Loose associations, Tangential (In setting of dementia) Thought Content: Other (Disorganized) Hallucination Type: None Delusion Type: None Suicidal Ideation: No Suicidal Plan: No Suicidal Intention: No Homicidal Ideation: No Homicidal Plan: No Homicidal Intention: No Insight: Poor Judgment: Poor Assessment and Plan - Assessment (1) Late onset Alzheimer's disease with behavioral disturbance Code(s): G30.1 - Alzheimer's disease with late onset; F02.81 - Dementia in other diseases classified elsewhere with behavioral disturbance Status: Acute - Plan Plan: Continue current treatment plan Justification for Continued Inpatient Stay: Patient would decompensate in a less restrictive setting Request Healthcare Surrogate/Guardian Advocate?: Yes
[2018-04-25] MEDS: traZODone 50 MG Tablet PO SCH (20:49)
[2018-04-26] MEDS: Divalproex 250 MG DR Tablet PO SCH ×2 (09:11→21:01)
[2018-04-26] MEDS: QUEtiapine 25 MG Tablet PO SCH ×2 (09:12→16:10)
--- NOTE | 2018-04-26 12:12 | P.PNPSY ---
Subjective Remarks: Patient was seen and case discussed with nursing. Patient is alert and oriented 1. We performed an exercise were asked him to name items on his lunch plate. He could not name half of them. His behaving well on the unit. Largely seclusive to self. Compliant with medications Mental Status Examination Appearance: Appropriate Consciousness: Alert Orientation: Person Motor Activity: Other (No motor abnormalities noted) Speech: Hesitant Language: Adequate Fund of Knowledge: Inadequate Attention and Concentration: Inadequate Memory: Impaired Mood: Anxious Affect: Blunt Thought Process & Associations: Loose associations Thought Content: Other (Disorganized) Hallucination Type: None Delusion Type: None Suicidal Ideation: No Suicidal Plan: No Suicidal Intention: No Homicidal Ideation: No Homicidal Plan: No Homicidal Intention: No Insight: Poor Judgment: Poor Assessment and Plan - Assessment (1) Late onset Alzheimer's disease with behavioral disturbance Code(s): G30.1 - Alzheimer's disease with late onset; F02.81 - Dementia in other diseases classified elsewhere with behavioral disturbance Status: Acute - Plan Plan: Continue current treatment plan Justification for Continued Inpatient Stay: Patient would decompensate in a less restrictive setting Request Healthcare Surrogate/Guardian Advocate?: Yes
[2018-04-26] MEDS: traZODone 50 MG Tablet PO SCH (21:02)
[2018-04-26] MEDS ORDERED: Haloperidol Inj 5 MG/ML Ampul IM ONE (23:30)
[2018-04-27] MEDS: Divalproex 250 MG DR Tablet PO SCH ×2 (09:46→20:52)
[2018-04-27] MEDS: QUEtiapine 25 MG Tablet PO SCH (09:46)
--- NOTE | 2018-04-27 10:36 | P.PNPSY ---
Subjective Remarks: Patient seen in day room with nurse Nieves, patient continues diffusely confused and disorganized the low behavioral problems at the present time. Chart reviewed. Patient compliant medication. Patient discussed with nurse. It appears patient became more out of control late yesterday evening did attempt to hit staff in the groin. We will adjust Seroquel dosage to 400 mg at at bedtime 100 mg at noon and 6 PM Review of Systems All other systems reviewed negative except as stated in HPI Mental Status Examination Appearance: Appropriate Consciousness: Alert Orientation: Person Motor Activity: Other (No motor abnormalities noted) Speech: Hesitant Language: Adequate Fund of Knowledge: Inadequate Attention and Concentration: Inadequate Memory: Impaired Mood: Anxious Affect: Blunt Thought Process & Associations: Loose associations Thought Content: Other (Disorganized) Hallucination Type: None Delusion Type: None Suicidal Ideation: No Suicidal Plan: No Suicidal Intention: No Homicidal Ideation: No Homicidal Plan: No Homicidal Intention: No Insight: Poor Judgment: Poor Assessment and Plan - Assessment (1) Late onset Alzheimer's disease with behavioral disturbance Code(s): G30.1 - Alzheimer's disease with late onset; F02.81 - Dementia in other diseases classified elsewhere with behavioral disturbance Status: Acute - Plan Plan: Patient continues confused and demented with increased aggressive behavior in the evening see medication adjustment above Justification for Continued Inpatient Stay: At this time patient would decompensate if placed in a lower level of care Discharge Planning: To be determined Request Healthcare Surrogate/Guardian Advocate?: Yes
[2018-04-27] MEDS: traZODone 50 MG Tablet PO SCH (20:52)
[2018-04-28] MEDS: Divalproex 250 MG DR Tablet PO SCH ×2 (09:49→20:35)
--- NOTE | 2018-04-28 10:32 | P.PNPSY ---
Subjective Remarks: Patient seen in his room with nurse Izaguirre, chart reviewed, patient compliant medication. Patient continues diffusely confused and disoriented though calm this morning. His difficulty hearing continues to remain an impediment to communications. We will check Depakote blood level over in a.m. Patient showed better behavior last night the prior night's Review of Systems All other systems reviewed negative except as stated in HPI Mental Status Examination Appearance: Appropriate Consciousness: Alert Orientation: Person Motor Activity: Other (No motor abnormalities noted) Speech: Hesitant Language: Adequate Fund of Knowledge: Inadequate Attention and Concentration: Inadequate Memory: Impaired Mood: Anxious Affect: Blunt Thought Process & Associations: Loose associations Thought Content: Other (Disorganized) Hallucination Type: None Delusion Type: None Suicidal Ideation: No Suicidal Plan: No Suicidal Intention: No Homicidal Ideation: No Homicidal Plan: No Homicidal Intention: No Insight: Poor Judgment: Poor Assessment and Plan - Assessment (1) Late onset Alzheimer's disease with behavioral disturbance Code(s): G30.1 - Alzheimer's disease with late onset; F02.81 - Dementia in other diseases classified elsewhere with behavioral disturbance Status: Acute - Plan Plan: Patient continues demented confused with difficulty hearing. Though showed compliance with his medications. Some improved behavior last night. We will check Depakote level over in a.m. Justification for Continued Inpatient Stay: At this time patient would decompensate a place to a lower level of care Discharge Planning: To be determined Request Healthcare Surrogate/Guardian Advocate?: Yes
[2018-04-28] MEDS: QUEtiapine 100 MG Tablet PO SCH (11:07)
--- NOTE | 2018-04-28 12:46 | P.TTN ---
- Patient Problems Problems: 1. Discharge planning 2. Medication compliance 3. Knowledge deficit 4. Lack of coping skills - Progress Toward Goals Provider Present: Dr. Dillan Guillermo (Pt. is demented and is very hard of hearing.) Psychiatric Counselors Present: Other (Yaneli- Pt. is cooperative, has no insight, and needs placement.) Group Spec/RT/OT/WEIR Present: DESTIN Crooks (Pt. is very demented and is unable to tolerate groups.) - Documentation Teaching Recipient: Patient
[2018-04-28] MEDS: traZODone 50 MG Tablet PO SCH (20:35)
[2018-04-29 06:12] VITALS: BP 143/69; PULSE 72; RESP 18; TEMP 97.9; O2SAT 93
[2018-04-29] MEDS: Divalproex 250 MG DR Tablet PO SCH (09:13)
--- NOTE | 2018-04-29 12:31 | P.PNPSY ---
Subjective Remarks: Patient seen in day room with floor staff, chart reviewed, patient compliant medication. Patient continues diffusely confused disorganized also somewhat if once perhaps by his difficulty hearing. The peers patient behavior is calming down is no significant sundowning noted last night patient scheduled for 5by tomorrow Review of Systems All other systems reviewed negative except as stated in HPI Mental Status Examination Appearance: Appropriate Consciousness: Alert Orientation: Person Motor Activity: Other (No motor abnormalities noted) Speech: Hesitant Language: Adequate Fund of Knowledge: Inadequate Attention and Concentration: Inadequate Memory: Impaired Mood: Anxious Affect: Blunt Thought Process & Associations: Loose associations Thought Content: Other (Disorganized) Hallucination Type: None Delusion Type: None Suicidal Ideation: No Suicidal Plan: No Suicidal Intention: No Homicidal Ideation: No Homicidal Plan: No Homicidal Intention: No Insight: Poor Judgment: Poor Assessment and Plan - Assessment (1) Late onset Alzheimer's disease with behavioral disturbance Code(s): G30.1 - Alzheimer's disease with late onset; F02.81 - Dementia in other diseases classified elsewhere with behavioral disturbance Status: Acute - Plan Plan: Patient continues confused demented though appears no significant behavioral problems last night. Patient scheduled for 5by tomorrow Justification for Continued Inpatient Stay: At this time patient would decompensate if placed in a lower level of care Discharge Planning: To be determined Request Healthcare Surrogate/Guardian Advocate?: Yes
[2018-04-29] MEDS: QUEtiapine 100 MG Tablet PO SCH (12:37)
--- NOTE | 2018-04-29 13:40 | P.DSPSY ---
Psychiatry Discharge Summary Inpatient Psychiatric care?: Yes Advance Directives: Unknown Reason for Unknown:: Due to Patient Condition Mental Health Advance Directive: No Health Care Proxy: No - Admission Admission Date: April 21, 2018 13:51 - Admission Diagnosis (1) Late onset Alzheimer's disease with behavioral disturbance Code(s): G30.1 - Alzheimer's disease with late onset; F02.81 - Dementia in other diseases classified elsewhere with behavioral disturbance Brief History: Patient is an 88-year-old white male who comes here from [facility] with history of dementia and increased aggression at that facility. Of interest his who is severely demented is also at that facility and he continues to attempt to give her the care that he gave her years ago. However it appears his stepdaughter who is his POA is at the facility and came with the patient and she signed him in on a voluntary basis. It is my opinion that this is really not appropriate with an adult. Thus I will initiate a Cedeno act I will do first opinion petition supporting Cedeno act. I also feel patient does not have capacity thus I will ask for health care surrogate and guardian advocate. I did discuss all of this with the patient's stepdaughter Sugar Gilliland at [phone] she is willing to be healthcare surrogate permission of her psychotropic medications man has been on in the past. He does have a history of bipolar disorder and this had multiple prior visits to us. I cared for him in 2004 related to his mental illness. At the present time patient sitting is somewhat distraught manner in his room nurse Dayana present throughout the session. Patient is very hard of hearing she is causing increased frustration with him so is diffusely confused and place time and situation. He knows his is quite sick but is somewhat confused about how he can try to help her he is somewhat confused about his behaviors at [facility]. He does deny suicidality he does deny voices or visions. The times he appears to be somewhat distractible and responding to internal stimuli. Patient's stepdaughter states she has had some increased difficulties with his sleep patterns. And aggressiveness. Patient denies any family history of mental health issues. He is vague about past alcohol abuse on his part. Denies other drug use. At this time patient does meet criteria for acute inpatient psychiatric hospitalization. I feel he does not have capacity to sign on a voluntary basis thus I will initiate a [place]ed[place] act and do petition for health care surrogate and guardian advocate as mentioned above. Daughter states patient is otherwise healthy has no other significant medical issues. We will continue his Depakote Seroquel and trazodone though we will adjust the Seroquel to smaller doses during the day and a little larger dose at bedtime. We will check Depakote blood level also. Hopeless be fairly short stay we may need to discuss alternative placements for this gentleman perhaps through [facility] manner. Tobacco Use In Past 30 Days: Yes How Often Do You Have a Drink Containing Alcohol: Never Hospital Course: Patient's hospital course was uneventful he showed compliance with medication, his dementia who was significant oriented only to self, there is some sundowning behaviors noted the with the adjustment of the of the medications they have decreased significantly. There is also the issue of the related to his difficulty hearing. Patient does deny suicidality or voices. At this time I feel is reached maximum benefit of this hospitalization. There is a bed available for him at [facility] today this patient to be discharged today to that facility with Rx 1 month. Also strong recommendation the make an attempt to help treat his difficulty hearing - Discharge Discharge Date: 04/29/18 - Discharge Diagnosis (1) Late onset Alzheimer's disease with behavioral disturbance Diagnosis: Principal Code(s): G30.1 - Alzheimer's disease with late onset; F02.81 - Dementia in other diseases classified elsewhere with behavioral disturbance Status: Acute Discharge Disposition: [facility]ational [facility] Facility - Discharge Instructions Discharge Diet: Regular Diet Activities You Can Perform: Regular- No Restrictions - Discharge Time > 30 minutes Mental Status Examination Appearance: Appropriate Consciousness: Alert Orientation: Person Motor Activity: Other (No motor abnormalities noted) Speech: Hesitant Language: Adequate Fund of Knowledge: Inadequate Attention and Concentration: Inadequate Memory: Impaired Mood: Anxious Affect: Blunt Thought Process & Associations: Loose associations Thought Content: Other (Disorganized) Hallucination Type: None Delusion Type: None Suicidal Ideation: No Suicidal Plan: No Suicidal Intention: No Homicidal Ideation: No Homicidal Plan: No Homicidal Intention: No Insight: Poor Judgment: Poor Discharge/Advance Care Plan - Results Vital Signs: Last Vital Signs Temp 97.9 F 04/29/18 06:11 Pulse 72 04/29/18 06:11 Resp 18 04/29/18 06:11 BP 143/69 H 04/29/18 06:11 Pulse Ox 93 L 04/29/18 06:11 Lab Results: Abnormal Lab Results 04/29/18 08:15 Valproic Acid 49 L Laboratory Results Hemoglobin A1c 5.9 % (4.3-6.0) 04/22/18 07:52 Triglycerides 60 mg/dL (42-150) 04/22/18 07:52 Cholesterol 174 mg/dL (120-200) 04/22/18 07:52 LDL Cholesterol, Calc 87 mg/dL (0-99) 04/22/18 07:52 HDL Cholesterol 75.2 mg/dL (40.0-60.0) H 04/22/18 07:52 TSH 2.620 uIU/mL (0.358-3.740) 04/21/18 04:05 Urine Culture Comments Culture not ind 04/21/18 06:21 Valproic Acid 49 mcg/mL (50-100) L 04/29/18 08:15 Summary of Procedures: None done Imaging: ITS Impressions Chest X-Ray 04/21/18 03:52 CONCLUSION: Trace bibasilar atelectasis. Head CT 04/21/18 03:52 CONCLUSION: 1. No acute intracranial abnormality. 2. Chronic white matter changes. 3. Worsening chronic left maxillary sinus disease. . Pending Results: None - Medications Number of antipsychotic medications at discharge: 1 - Discharge Care Plan Goals to Promote Your Health: * To prevent worsening of your condition and complications * To maintain your health at the optimal level Directions to Meet Your Goals: Take your medications as prescribed Follow your dietary instruction Follow activity as directed Keep your appointments as scheduled Take your immunizations and boosters as scheduled If your symptoms worsen call your PCP, if no PCP go to Urgent Care Center or Emergency Room For 24/ questions related to your inpatient stay or results of tests pending at discharge, please contact Dr. Deion Guillermo MD at Smoking is Dangerous to Your Health. Avoid second hand smoking
== END 2018-04-29 17:00 ==
LOC: NEPE 03:40 → NEDA 13:51 → H250 14:14
PROVIDERS: ADMIT Psychiatry & Neurology Psychiatry; ATTEND Psychiatry & Neurology Psychiatry